=== PATIENT | female | born 1950 | race Caucasian/White ===

== ENCOUNTER 2016-05-05 10:40 | Outpatient (CLI) | payer MEDICARE, OTHER | END 2016-05-05 10:41 | disposition home or self-care (01) | DX: E78.5 Hyperlipidemia, unspecified (principal); F17.200 Nicotine dependence, unspecified, uncomplicated; M50.30 Other cervical disc degeneration, unspecified cervical region; K21.9 Gastro-esophageal reflux disease without esophagitis ==

== ENCOUNTER 2017-05-06 14:57 | Outpatient (CLI) | payer MEDICARE, OTHER ==
[2017-05-06 19:12] LABS: BASOPHILS % (AUTO) 0.4 %; EOSINOPHILS # (AUTO) 0.1 10^3/uL (0.0-0.7); EOSINOPHILS % (AUTO) 1.5 %; HGB - HEMOGLOBIN 14.8 g/dL (12.0-16.0); LYMPHOCYTES # (AUTO) 2.7 10^3/uL (1.5-3.5); LYMPHOCYTES % (AUTO) 36.7 %; MEAN CORPUSCULAR HEMOGLOBIN 29.7 pg (27.0-31.0); MEAN CORPUSCULAR HGB CONC 31.9 g/dL (32.0-36.0); MEAN CORPUSCULAR VOLUME 93.1 fL (81.0-99.0); MEAN PLATELET VOLUME 8.6 fL (7.9-10.8); MONOCYTES # (AUTO) 0.5 10^3/uL (0.0-1.0); MONOCYTES % (AUTO) 7.1 %; NEUTROPHILS # (AUTO) 3.9 10^3/uL (1.5-6.6); NEUTROPHILS % (AUTO) 54.3 %; PLT - PLATELET COUNT 264 10^3/uL (130-450); RED BLOOD COUNT 4.97 10^6/uL (4.20-5.40); RED CELL DISTRIBUTION WIDTH 13.9 % (12.0-15.0); WHITE BLOOD COUNT 7.2 x10^3/uL (4.8-10.8)
[2017-05-06 19:35] LABS: ALBUMIN 4.5 g/dL (3.2-5.5); ALBUMIN/GLOBULIN RATIO 1.3 (1.0-2.2); ALKALINE PHOSPHATASE 53 IU/L (42-121); ALT ALANINE AMINOTRANSFERASE 25 IU/L (10-60); AST ASPARTATE AMINOTRANSFERASE 33 IU/L (10-42); BILIRUBIN,TOTAL 0.9 mg/dL (0.2-1.0); BUN - BLOOD UREA NITROGEN 21 mg/dL (6-20); CALCIUM 9.4 mg/dL (8.5-10.3); CARBON DIOXIDE - CO2 28 mmol/L (21-32); CHLORIDE 105 mmol/L (101-111); CREATININE 0.6 mg/dL (0.4-1.0); GFR - MDRD 100 (>89); GLUCOSE 90 mg/dL (70-100); SODIUM 142 mmol/L (135-145)
[2017-05-06 19:36] LABS: CRP - C-REACTIVE PROTEIN < 1.0 mg/dL (0-1.0)
== END 2017-05-06 14:58 ==
LOC: LAB.WCP 14:57
PROVIDERS: ATTEND Family Medicine
DX: R51 Headache (principal)
CPT/HCPCS: 36415; 80053; 85025; 85651; 86140

== ENCOUNTER 2017-05-07 11:44 | Outpatient (CLI) | payer MEDICARE, OTHER ==
--- NOTE | 2017-05-07 15:16 | CT Report ---
DATE OF SERVICE: 05/07/[address]: 05/07/2017 COMPARISON: None. INDICATION: Headache for 4 days. TECHNIQUE: Noncontrast axial imaging of the head was performed with coronal reformats. No contrast. FINDINGS: No evidence of acute intracranial hemorrhage or mass. The ventricles appear normal without midline shift. No abnormal fluid collection is demonstrated. The mastoid air cells and the paranasal sinuses appear well aerated. No calvarial defect is seen. Soft tissues and orbits appear grossly unremarkable. IMPRESSION: NEGATIVE HEAD CT. In accordance with CT protocol optimization, one or more of the following dose reduction techniques were utilized for this exam: automated exposure control, adjustment of mA and/or KV based on patient size, or use of iterative reconstructive technique. TD: 05/07/2017 16:14 MTDD
== END 2017-05-07 11:45 | disposition home or self-care (01) ==
LOC: DI 11:44
PROVIDERS: ATTEND Family Medicine
DX: R51 Headache (principal)
CPT/HCPCS: 70450

== ENCOUNTER 2017-06-02 11:58 | Emergency (ER) | payer MEDICARE, OTHER ==
[2017-06-02 13:11] LABS: BASOPHILS # (AUTO) 0.1 10^3/uL (0.0-0.1); BASOPHILS % (AUTO) 1.5 %; EOSINOPHILS # (AUTO) 0.2 10^3/uL (0.0-0.7); EOSINOPHILS % (AUTO) 1.9 %; HGB - HEMOGLOBIN 15.4 g/dL (12.0-16.0); LYMPHOCYTES % (AUTO) 35.3 %; MEAN CORPUSCULAR HEMOGLOBIN 30.6 pg (27.0-31.0); MEAN CORPUSCULAR HGB CONC 34.9 g/dL (32.0-36.0); MEAN CORPUSCULAR VOLUME 87.8 fL (81.0-99.0); MEAN PLATELET VOLUME 7.3 fL (7.9-10.8); MONOCYTES # (AUTO) 0.6 10^3/uL (0.0-1.0); NEUTROPHILS # (AUTO) 4.7 10^3/uL (1.5-6.6); NEUTROPHILS % (AUTO) 54.3 %; PLT - PLATELET COUNT 261 10^3/uL (130-450); RED BLOOD COUNT 5.02 10^6/uL (4.20-5.40); RED CELL DISTRIBUTION WIDTH 12.7 % (12.0-15.0); WHITE BLOOD COUNT 8.6 x10^3/uL (4.8-10.8)
[2017-06-02 13:24] LABS: ALBUMIN 4.3 g/dL (3.2-5.5); ALBUMIN/GLOBULIN RATIO 1.2 (1.0-2.2); BILIRUBIN,TOTAL 0.6 mg/dL (0.2-1.0); CALCIUM 9.6 mg/dL (8.5-10.3); CREATININE 0.6 mg/dL (0.4-1.0); TOTAL PROTEIN 7.9 g/dL (6.7-8.2)
[2017-06-02 13:41] LABS: BILIRUBIN,URINE NEGATIVE (NEGATIVE); CLARITY,URINE CLEAR (CLEAR); GLUCOSE, URINE (UA) NEGATIVE (NEGATIVE); KETONES,URINE (UA) NEGATIVE (NEGATIVE); LEUKOCYTE ESTERASE, URINE NEGATIVE (NEGATIVE); NITRITE,URINE NEGATIVE (NEGATIVE); OCCULT BLOOD,URINE NEGATIVE (NEGATIVE); PROTEIN,URINE NEGATIVE (NEGATIVE); UROBILINOGEN,URINE 0.2 (NORMAL) E.U./dL (NORMAL)
--- NOTE | 2017-06-02 14:24 | ED Physician Documentation ---
PD HPI ABD PAIN - Stated complaint Stated Complaint: ABD PX - Chief complaint Chief Complaint: Abd Pain - History obtained from History obtained from: Patient - History of Present Illness Timing - onset: How many weeks ago (1) Timing - duration: Weeks (1) Timing - details: Gradual onset, Waxing and waning Quality: Cramping, Aching, Pain Location: LUQ, LLQ Radiation: Lower back Improved by: Position. No: Eating Worsened by: Position, Palpation. No: Eating Associated symptoms: Nausea. No: Fever, Vomiting, Diarrhea, Constipation Similar symptoms before: Has not had sx before Recently seen: Not recently seen Review of Systems Constitutional: denies: Fever, Chills, Myalgias Nose: denies: Rhinorrhea / runny nose, Congestion Throat: denies: Sore throat Cardiac: denies: Chest pain / pressure Respiratory: denies: Cough : denies: Dysuria, Frequency, Vaginal bleeding PD PAST MEDICAL HISTORY - Past Medical History Past Medical History: Yes Cardiovascular: High cholesterol Respiratory: COPD Neuro: Headache/migraine Endocrine/Autoimmune: None GI: GERD, Other (no history of pancreatitis) : Kidney stones HEENT: None Psych: None Musculoskeletal: Osteoarthritis Derm: None - Past Surgical History Past Surgical History: Yes 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, Hysterectomy, Oophrectomy Derm: Skin grafts - Present Medications Home Medications: Ambulatory Orders Medication Instructions Recorded Confirmed Calcium [Calcio Sheyla] 500 mg PO DAILY 10/28/12 10/02/15 Cholecalciferol (Vitamin D3) 1,000 unit PO DAILY 10/28/12 09/16/14 [Vitamin D] Esomeprazole Magnesium [Nexium] 20 mg PO BID 10/28/12 10/02/15 Simvastatin [Zocor] 20 mg PO DAILY 10/28/12 10/02/15 HYDROcod/ACETAM 5/325 [Vicodin 1 - 2 ea PO Q6H PRN #15 tablet 09/16/14 10/02/15 5/325] Docusate Sodium 100 mg PO DAILY #20 capsule 06/02/17 Famotidine [Pepcid] 20 mg PO ONCE #30 tablet 06/02/17 HYDROcod/ACETAM 5/325 [[place] 5/325] 1 tab PO Q6H PRN #15 tablet 06/02/17 Naproxen 375 mg PO BID #20 tablet 06/02/17 Ondansetron Odt [Zofran] 4 mg TL Q6H PRN #15 tablet 06/02/17 - Allergies Allergies/Adverse Reactions: Allergies Allergy/AdvReac Type Severity Reaction Status Date / Time aspirin AdvReac Mild Nausea Verified 11/23/13 11:12 - Living Situation Living Arrangement: reports: At home - Social History Does the pt smoke?: Yes Smoking Status: Current every day smoker Does the pt drink ETOH?: No Does the pt have substance abuse?: No - Family History Family history: reports: Non contributory - Immunizations Immunizations are current?: Yes PD ED PE NORMAL - Vitals Vital signs reviewed: Yes - General General: Alert and oriented X 3, No acute distress, Well developed/nourished - HEENT HEENT: Ears normal, Moist mucous membranes, Pharynx benign - Neck Neck: Supple, no meningeal sign, No adenopathy - Cardiac Cardiac: RRR, No murmur - Respiratory Respiratory: Clear bilaterally - Abdomen Abdomen: Normal bowel sounds, Soft, Non distended, No organomegaly, Other ( tender left abdomen middle to upper, and also some to epigastric area. No guarding nor percussion tenderness. ) - Female Female : Deferred - Rectal Rectal: Deferred - Back Back: No CVA TTP - Derm Derm: Normal color, Warm and dry - Extremities Extremities: No deformity, No tenderness to palpate, Normal ROM s pain, No edema , No calf tenderness / cord - Neuro Neuro: Alert and oriented X 3, No motor deficit, Normal speech - Psych Psych: Normal mood, Normal affect Results - Vitals Vitals: Oxygen O2 Source Room air - Labs Labs: Laboratory Tests 06/02/17 06/02/17 06/02/17 12:59 12:59 13:05 WBC 8.6 RBC 5.02 Hgb 15.4 Hct 44.0 MCV 87.8 MCH 30.6 MCHC 34.9 RDW 12.7 Plt Count 261 MPV 7.3 L Neut # 4.7 Lymph # 3.0 Mcmullen # 0.6 Eos # 0.2 Baso # 0.1 Absolute Nucleated RBC 0.01 Nucleated RBC % 0.1 Sodium 140 Potassium 4.2 Chloride 100 L Carbon Dioxide 29 Anion Gap 11.0 BUN 11 Creatinine 0.6 Estimated GFR (MDRD) 100 Glucose 93 Calcium 9.6 Total Bilirubin 0.6 AST 24 ALT 21 Alkaline Phosphatase 49 Total Protein 7.9 Albumin 4.3 Globulin 3.6 Albumin/Globulin Ratio 1.2 Lipase 63 H Urine Color YELLOW Urine Clarity CLEAR Urine pH 6.0 Ur Specific [place] 1.015 Urine Protein NEGATIVE Urine Glucose (UA) NEGATIVE Urine Ketones NEGATIVE Urine Occult Blood NEGATIVE Urine Nitrite NEGATIVE Urine Bilirubin NEGATIVE Urine Urobilinogen 0.2 (NORMAL) Ur Leukocyte Esterase NEGATIVE Ur Microscopic Review NOT INDICATED Urine Culture Comments NOT INDICATED - Rads (name of study) abd CT Radiology: Prelim report reviewed (some mild pancreatic inflammation c/w pancreatitis) PD MEDICAL DECISION MAKING - ED course Complexity details: reviewed results (has slight elevation of lipase and CT showing some edema around he pancreas. However her pain is more left sided like diverticular. Has had less BMs for several days to a week. Could be also some pancreatic inflammation. Not alcohol drinker. She is on two meds associated with pancreatitis, so will stop those. ), re-evaluated patient, considered differential, d/w patient Departure - Departure Disposition: 01 Home, Self Care Clinical Impression: Abdominal pain Qualifiers: Abdominal location: left upper quadrant Qualified Code(s): R10.12 - Left upper quadrant pain Pancreatitis Qualifiers: Chronicity: acute Pancreatitis type: drug induced Acute pancreatitis complication: no infection or necrosis Qualified Code(s): K85.30 - Drug induced acute pancreatitis without necrosis or infection Condition: Stable Record reviewed to determine appropriate education?: Yes Instructions: ED Abdominal Pain Unkn Cause, ED Pancreatitis Follow-Up: Tomy oRthman MD [Primary Care Provider] - Prescriptions: Docusate Sodium 100 mg PO DAILY #20 capsule Famotidine [Pepcid] 20 mg PO ONCE #30 tablet HYDROcod/ACETAM 5/325 [[place] 5/325] 1 tab PO Q6H PRN #15 tablet PRN Reason: Pain Naproxen 375 mg PO BID #20 tablet Ondansetron Odt [Zofran] 4 mg TL Q6H PRN #15 tablet PRN Reason: Nausea / Vomiting Comments: I think some of your pain is more lower intestine and may be some diverticular inflammation. There is no signs of diverticulitis on CT scan. For this I would treated with some anti-inflammatory naproxen twice daily as well as a stool softener. However you do have some upper abdominal pain and your pancreas blood test is slightly elevated and the radiologist sees some mild swelling of the pancreas on CT scan. So there appears to be some pancreatitis. 2 your medications can be associated with that; both the cholesterol medicine and the Nexium. I would stop both of those medicines for now. Switch to famotidine for stomach acid reduction. Follow-up with your primary care in the next 2-3 days for reevaluation and retest of your blood. Return sooner if worsening symptoms. Use Zofran if needed for nausea and hydrocodone for pain if needed. Discharge Date/Time: 06/02/17 20:29
[2017-06-02] MEDS ORDERED: KETOROLAC 60 MG/2 ML VIAL IVP STA (14:40)
[2017-06-02] MEDS ORDERED: HYDROmorphone 1 MG/ML SYRINGE IVP STA ×3 (14:40→19:34)
[2017-06-02] MEDS ORDERED: SODIUM CHLORIDE 0.9% 1,000 ML IV ONE (14:40)
[2017-06-02] MEDS ORDERED: ONDANSETRON 4 MG/2 ML VIAL IVP STA (14:40)
[2017-06-02] MEDS ORDERED: IOPAMIDOL-300 100 ML VIAL ONE (15:02)
[2017-06-02] MEDS ORDERED: IOPAMIDOL-300 100 ML VIAL IVP ONE (16:13)
--- NOTE | 2017-06-02 16:31 | CT Preliminary Report ---
Exam: CT ABDOMEN/PELVIS W/ IMPRESSION: 1. New small amount of pancreatic edema consistent with pancreatitis. Correlate clinically. 2. Colonic diverticulosis. 3. Moderate central spinal canal stenosis at L3-L4. [facility] SITE ID: [id number]
--- NOTE | 2017-06-02 16:43 | CT Report ---
EXAM: CT ABDOMEN AND PELVIS EXAM DATE: 06/02/2017 04:13 PM. CLINICAL HISTORY: History of diverticula. Patient presents with upper abdominal pain for one week. COMPARISONS: 08/17/2013. CT chest 02/19/2016. TECHNIQUE: Routine helical CT imaging was performed through the abdomen and pelvis. IV contrast: 100 mL Isovue-300. Enteric contrast: No. Reconstructions: Coronal and sagittal. In accordance with CT protocol optimization, one or more of the following dose reduction techniques w ere utilized for this exam: automated exposure control, adjustment of mA and/or KV based on patient s ize, or use of iterative reconstructive technique. FINDINGS: Lung Bases: Scarring or plate-like atelectasis at the right lung base. Liver: Normal. No masses. Gallbladder/Bile Ducts: Unremarkable. Spleen: Normal. Pancreas: Pancreas is of normal caliber with homogeneous enhancement. However, new small amount of pe ripancreatic edema involving the distal body and tail, greatest superiorly, without pseudocyst format ion best appreciated on coronal image 26. No focal pancreatic lesion nor pancreatic duct dilatation. Adrenal Glands: Normal. Kidneys: Normal. No masses or hydronephrosis. Peritoneal Cavity/Bowel: Diverticula off the colon. No free fluid, free air or adenopathy. No masses or acute inflammatory process. Appendix not visualized but no inflammatory changes adjacent to the cecum. Pelvic Organs: Hysterectomy. No free fluid nor adnexal mass lesions. Urinary bladder small in caliber . Vasculature: No aneurysms or other significant abnormality. Bones: Moderate central spinal canal stenosis at L3-L4. Other: None. IMPRESSION: 1. New small amount of peripancreatic edema consistent with pancreatitis. Correlate clinically. 2. Colonic diverticulosis. 3. Moderate central spinal canal stenosis at L3-L4. [facility] Referring Provider Line: [phone] SITE ID: [id number]
--- NOTE | 2017-06-02 19:33 | Ultrasound Report ---
EXAM: ABDOMEN ULTRASOUND LIMITED, RUQ EXAM DATE: 06/02/2017 07:21 PM. CLINICAL HISTORY: Upper abdominal pain; some pancreatitis on CT; check gallbladder. COMPARISON: CT abdomen and pelvis 06/02/2017. Abdomen ultrasound 10/19/2006 TECHNIQUE: Real-time scanning was performed with static images obtained. FINDINGS: Liver: Focal echogenic mass seen at the anterior aspect of the left hepatic lobe measuring 8 x 9 x 4 mm, measures slightly smaller than on the prior abdomen ultrasound, most likely represents a hemangio ma consistent with benign. Overall, the liver echotexture appears mildly hyperechoic as seen with mil d fatty liver. Liver length 15.6 cm. Main portal vein flow: Hepatopetal. Gallbladder: Normal. No stones, wall thickening, or sonographic Vital's sign. Wall measures 1.5 mm. Patient is medicated. Biliary System: Common duct measures 5.6 mm. No intrahepatic or extrahepatic ductal dilatation. Other: No hydronephrosis seen in the right kidney. IMPRESSION: 1. Normal gallbladder. No cholelithiasis or cholecystitis. 2. No bile duct dilatation seen. 3. Mild fatty liver. 4. Small liver hemangioma again noted. [facility] Referring Provider Line: [phone] SITE ID: [id number]
[2017-06-02 19:58] VITALS: BP 117/56
== END 2017-06-02 20:29 | disposition home or self-care (01) ==
LOC: ED 11:58
DX: K85.30 Drug induced acute pancreatitis without necrosis or infection (principal); E78.00 Pure hypercholesterolemia, unspecified; J44.9 Chronic obstructive pulmonary disease, unspecified; K21.9 Gastro-esophageal reflux disease without esophagitis; M19.90 Unspecified osteoarthritis, unspecified site; Z87.442 Personal history of urinary calculi; F17.200 Nicotine dependence, unspecified, uncomplicated
CPT/HCPCS: 36415; 74177; 76705; 80053; 81003; 83690; 85025; 99283; 99284; J1170; Q9967; 81001; 87086

== ENCOUNTER 2017-06-10 09:58 | Outpatient (CLI) | payer MEDICARE, OTHER ==
[2017-06-10 13:19] LABS: BASOPHILS % (AUTO) 0.4 %; EOSINOPHILS # (AUTO) 0.1 10^3/uL (0.0-0.7); HGB - HEMOGLOBIN 14.7 g/dL (12.0-16.0); LYMPHOCYTES # (AUTO) 2.5 10^3/uL (1.5-3.5); LYMPHOCYTES % (AUTO) 34.5 %; MEAN CORPUSCULAR HEMOGLOBIN 30.2 pg (27.0-31.0); MEAN CORPUSCULAR HGB CONC 33.8 g/dL (32.0-36.0); MEAN CORPUSCULAR VOLUME 89.5 fL (81.0-99.0); MEAN PLATELET VOLUME 8.3 fL (7.9-10.8); MONOCYTES # (AUTO) 0.5 10^3/uL (0.0-1.0); MONOCYTES % (AUTO) 6.8 %; NEUTROPHILS % (AUTO) 56.3 %; PLT - PLATELET COUNT 288 10^3/uL (130-450); RED BLOOD COUNT 4.86 10^6/uL (4.20-5.40); RED CELL DISTRIBUTION WIDTH 13.2 % (12.0-15.0); WHITE BLOOD COUNT 7.2 x10^3/uL (4.8-10.8)
[2017-06-10 13:34] LABS: ALBUMIN 4.1 g/dL (3.2-5.5); ALBUMIN/GLOBULIN RATIO 1.2 (1.0-2.2); BILIRUBIN,TOTAL 0.6 mg/dL (0.2-1.0); CALCIUM 10.2 mg/dL (8.5-10.3); CREATININE 0.6 mg/dL (0.4-1.0); TOTAL PROTEIN 7.5 g/dL (6.7-8.2)
== END 2017-06-10 09:59 ==
LOC: LAB.WCP 09:58
PROVIDERS: ATTEND Family Medicine
DX: K85.90 Acute pancreatitis without necrosis or infection, unspecified (principal)
CPT/HCPCS: 36415; 80053; 82150; 83690; 85025

== ENCOUNTER 2017-06-12 12:22 | Outpatient (CLI) | payer MEDICARE, OTHER | END 2017-06-12 12:23 | disposition home or self-care (01) | LOC: DI 12:22 | PROVIDERS: ATTEND Family Medicine | DX: Z53.9 Procedure and treatment not carried out, unspecified reason (principal) ==

== ENCOUNTER 2017-06-15 10:53 | Outpatient (CLI) | payer MEDICARE, OTHER ==
[2017-06-15] MEDS ORDERED: IOPAMIDOL-300 50 ML VIAL ONE (11:13)
[2017-06-15] MEDS ORDERED: IOPAMIDOL-300 100 ML VIAL ONE (11:13)
[2017-06-15] MEDS ORDERED: IOPAMIDOL-300 100 ML VIAL IVP ONE (13:28)
[2017-06-15] MEDS ORDERED: IOPAMIDOL-300 50 ML VIAL PO ONE (13:28)
--- NOTE | 2017-06-15 18:15 | CT Report ---
CT ABDOMEN AND PELVIS WITH CONTRAST: 06/15/2017 CLINICAL INDICATION: Pancreatitis. COMPARISON: 06/02/2017 TECHNIQUE: Axial CT images of the abdomen and pelvis were obtained with 100 mL Isovue 300 intravenously as well as oral contrast. In accordance with CT protocol optimization, one or more of the following dose reduction techniques were utilized for this exam: Automated exposure control, adjustment of mA and/or KV based on patient size, or use of iterative reconstructive technique. FINDINGS: Limited evaluation of the lung bases is unremarkable. ABDOMEN: The liver, spleen, pancreas, kidneys and adrenal glands are unremarkable. The gallbladder is not dilated. No bowel dilatation, free gas, or free fluid is present. No abdominal adenopathy is seen. PELVIS: A few scattered sigmoid diverticula are seen, without CT evidence of diverticulitis. The patient is status post hysterectomy. No pelvic adenopathy or free fluid is present. Osseous structures demonstrate degenerative changes. IMPRESSION: NO EVIDENT PANCREATIC MASS OR RESIDUAL INFLAMMATION FROM PREVIOUS PANCREATITIS. TD: 06/15/2017 18:14
== END 2017-06-15 10:54 | disposition home or self-care (01) ==
LOC: DI 10:53
PROVIDERS: ATTEND Family Medicine
DX: K85.90 Acute pancreatitis without necrosis or infection, unspecified (principal)
CPT/HCPCS: 74177; Q9967

== ENCOUNTER 2017-12-09 15:12 | Outpatient (CLI) | payer MEDICARE, OTHER ==
[2017-12-09 18:42] LABS: BASOPHILS % (AUTO) 0.5 %; EOSINOPHILS # (AUTO) 0.1 10^3/uL (0.0-0.7); EOSINOPHILS % (AUTO) 1.4 %; HGB - HEMOGLOBIN 15.2 g/dL (12.0-16.0); LYMPHOCYTES # (AUTO) 3.4 10^3/uL (1.5-3.5); LYMPHOCYTES % (AUTO) 40.2 %; MEAN CORPUSCULAR HEMOGLOBIN 30.6 pg (27.0-31.0); MEAN CORPUSCULAR HGB CONC 33.2 g/dL (32.0-36.0); MEAN CORPUSCULAR VOLUME 92.4 fL (81.0-99.0); MEAN PLATELET VOLUME 8.3 fL (7.9-10.8); MONOCYTES # (AUTO) 0.6 10^3/uL (0.0-1.0); MONOCYTES % (AUTO) 6.7 %; NEUTROPHILS # (AUTO) 4.3 10^3/uL (1.5-6.6); NEUTROPHILS % (AUTO) 51.2 %; PLT - PLATELET COUNT 273 10^3/uL (130-450); RED BLOOD COUNT 4.95 10^6/uL (4.20-5.40); RED CELL DISTRIBUTION WIDTH 13.6 % (12.0-15.0); WHITE BLOOD COUNT 8.5 x10^3/uL (4.8-10.8)
[2017-12-09 19:12] LABS: ALBUMIN/GLOBULIN RATIO 1.1 (1.0-2.2); ALKALINE PHOSPHATASE 51 IU/L (42-121); ALT ALANINE AMINOTRANSFERASE 23 IU/L (10-60); AMYLASE 39 U/L (28-100); AST ASPARTATE AMINOTRANSFERASE 28 IU/L (10-42); BILIRUBIN,TOTAL 1.5 mg/dL (0.2-1.0); CALCIUM 9.6 mg/dL (8.5-10.3); CARBON DIOXIDE - CO2 26 mmol/L (21-32); CHLORIDE 102 mmol/L (101-111); CHOL/HDL RATIO 7.2 (<4.4); CHOLESTEROL 301 mg/dL; GLUCOSE 90 mg/dL (70-100); HDL CHOLESTEROL 42 mg/dL; LDL CHOLESTEROL,CALCULATED 219 mg/dL; LDL/HDL RATIO 5.2 (<4.4); LIPASE 30 U/L (22-51); SODIUM 137 mmol/L (135-145); TOTAL PROTEIN 7.6 g/dL (6.7-8.2); VLDL CHOLESTEROL 40 mg/dL
[2017-12-09 19:19] LABS: BUN - BLOOD UREA NITROGEN 14 mg/dL (6-20); CREATININE 0.6 mg/dL (0.4-1.0); GFR - MDRD 100 (>89)
== END 2017-12-09 15:13 ==
LOC: LAB.WCP 15:12
PROVIDERS: ATTEND Family Medicine
DX: K85.90 Acute pancreatitis without necrosis or infection, unspecified (principal); Z13.29 Encounter for screening for other suspected endocrine disorder; R10.13 Epigastric pain
CPT/HCPCS: 36415; 80053; 80061; 82150; 83690; 83721; 84443; 85025

== ENCOUNTER 2017-12-10 12:10 | Outpatient (CLI) | payer MEDICARE, OTHER | END 2017-12-10 12:11 | disposition home or self-care (01) | LOC: LAB.WCP 12:10 | PROVIDERS: ATTEND Family Medicine | DX: K85.90 Acute pancreatitis without necrosis or infection, unspecified (principal); R10.13 Epigastric pain | CPT/HCPCS: 87338 ==

== ENCOUNTER 2017-12-13 08:00 | Outpatient (CLI) | payer MEDICARE, OTHER ==
[2017-12-13 20:00] LABS: H. PYLORIS ANTIGEN STL NEGATIVE (Negative)
== END 2017-12-13 08:01 | disposition home or self-care (01) ==
LOC: LAB.WCP 08:00
PROVIDERS: ATTEND Family Medicine
DX: K85.90 Acute pancreatitis without necrosis or infection, unspecified (principal); R10.13 Epigastric pain
CPT/HCPCS: 87338

== ENCOUNTER 2018-02-25 14:39 | Outpatient (CLI) | payer MEDICARE, OTHER ==
[2018-02-25 18:55] LABS: CREATININE 0.6 mg/dL (0.4-1.0)
== END 2018-02-25 14:40 | disposition home or self-care (01) ==
LOC: LAB.WCP 14:39
PROVIDERS: ATTEND Internal Medicine Gastroenterology
DX: K85.90 Acute pancreatitis without necrosis or infection, unspecified (principal)
CPT/HCPCS: 36415; 82565

== ENCOUNTER 2018-08-19 08:00 | Outpatient (CLI) | payer MEDICARE, OTHER ==
[2018-08-19 13:47] LABS: BASOPHILS # (AUTO) 0.1 10^3/uL (0.0-0.1); BASOPHILS % (AUTO) 0.6 %; EOSINOPHILS # (AUTO) 0.1 10^3/uL (0.0-0.7); EOSINOPHILS % (AUTO) 0.7 %; HGB - HEMOGLOBIN 13.7 g/dL (12.0-16.0); LYMPHOCYTES # (AUTO) 5.2 10^3/uL (1.5-3.5); MEAN CORPUSCULAR HEMOGLOBIN 29.8 pg (27.0-31.0); MEAN CORPUSCULAR HGB CONC 32.4 g/dL (32.0-36.0); MEAN CORPUSCULAR VOLUME 91.9 fL (81.0-99.0); MEAN PLATELET VOLUME 7.8 fL (7.9-10.8); MONOCYTES # (AUTO) 1.1 10^3/uL (0.0-1.0); MONOCYTES % (AUTO) 8.6 %; NEUTROPHILS # (AUTO) 6.5 10^3/uL (1.5-6.6); NEUTROPHILS % (AUTO) 50.1 %; PLT - PLATELET COUNT 344 10^3/uL (130-450); RED BLOOD COUNT 4.59 10^6/uL (4.20-5.40); RED CELL DISTRIBUTION WIDTH 13.8 % (12.0-15.0)
[2018-08-19 13:52] LABS: ALBUMIN 3.9 g/dL (3.2-5.5); ALBUMIN/GLOBULIN RATIO 1.1 (1.0-2.2); BILIRUBIN,TOTAL 0.6 mg/dL (0.2-1.0); CALCIUM 9.8 mg/dL (8.5-10.3); CREATININE 0.6 mg/dL (0.4-1.0); TOTAL PROTEIN 7.3 g/dL (6.7-8.2)
== END 2018-08-19 23:59 | disposition home or self-care (01) ==
LOC: LAB.WCP 08:00
PROVIDERS: ATTEND Family Medicine
DX: J44.9 Chronic obstructive pulmonary disease, unspecified (principal); R06.09 Other forms of dyspnea; R05 Cough
CPT/HCPCS: 36415; 80053; 83880; 85025

== ENCOUNTER 2018-08-19 10:03 | Outpatient (CLI) | payer MEDICARE, OTHER ==
--- NOTE | 2018-08-19 11:20 | XRAY Report ---
Reason: COUGH Procedure Date: 08/19/2018 Accession Number: [id number] / [id number] Procedure: WCP - Chest 2 View X-Ray CPT Code: 39104 FULL RESULT: EXAM: CHEST RADIOGRAPHY EXAM DATE: 08/19/2018 10:14 AM. CLINICAL HISTORY: COUGH. COMPARISON: 03/21/2015 9:18 AM. TECHNIQUE: 2 views. FINDINGS: Lungs/Pleura: No focal opacities evident. No pleural effusion. No pneumothorax. Normal volumes. Mediastinum: Heart and mediastinal contours are unremarkable. Other: None. IMPRESSION: Normal 2-view chest radiography. [facility]
== END 2018-08-19 10:04 | disposition home or self-care (01) ==
LOC: DI.WCP 10:03
PROVIDERS: ATTEND Family Medicine
DX: R05 Cough (principal); J44.9 Chronic obstructive pulmonary disease, unspecified; R06.09 Other forms of dyspnea
CPT/HCPCS: 36415; 71046; 80053; 83880; 85025

== ENCOUNTER 2019-05-16 14:49 | Outpatient (CLI) | payer MEDICARE, OTHER ==
--- NOTE | 2019-05-16 16:32 | XRAY Report ---
Reason: KNEE JOINT PAIN, RIGHT Procedure Date: 05/16/2019 Accession Number: [id number] / [id number] Procedure: XR - Knee 3 View RT CPT Code: Final Report FULL RESULT: EXAM: RIGHT KNEE RADIOGRAPHY EXAM DATE: 05/16/2019 03:37 PM. CLINICAL HISTORY: Chronic KNEE JOINT PAIN, RIGHT. COMPARISON: None. TECHNIQUE: 3 views. FINDINGS: Bones: Normal. No fractures or bone lesions. Joints: Small knee joint effusion. No joint space narrowing on weightbearing views. No subluxation. No osteophyte formation. Soft Tissues: Normal. No soft tissue swelling. IMPRESSION: 1. Small right knee joint effusion. 2. No joint space narrowing. No evidence of bony abnormality. [facility]
== END 2019-05-16 14:50 | disposition home or self-care (01) ==
LOC: DI 14:49
PROVIDERS: ATTEND Family Medicine
DX: M25.461 Effusion, right knee (principal)

== ENCOUNTER 2020-10-07 08:00 | Outpatient (CLI) | payer MEDICARE, OTHER ==
[2020-10-07 12:26] LABS: BASOPHILS # (AUTO) 0.1 10^3/uL (0.0-0.1); BASOPHILS % (AUTO) 0.7 %; EOSINOPHILS # (AUTO) 0.2 10^3/uL (0.0-0.7); HCT - HEMATOCRIT 48.6 % (37.0-47.0); HGB - HEMOGLOBIN 15.5 g/dL (12.0-16.0); LYMPHOCYTES # (AUTO) 3.4 10^3/uL (1.5-3.5); LYMPHOCYTES % (AUTO) 39.4 %; MEAN CORPUSCULAR HEMOGLOBIN 30.2 pg (27.0-31.0); MEAN CORPUSCULAR HGB CONC 31.9 g/dL (32.0-36.0); MEAN CORPUSCULAR VOLUME 94.6 fL (81.0-99.0); MONOCYTES # (AUTO) 0.6 10^3/uL (0.0-1.0); MONOCYTES % (AUTO) 7.3 %; NEUTROPHILS # (AUTO) 4.4 10^3/uL (1.5-6.6); NEUTROPHILS % (AUTO) 50.4 %; PLT - PLATELET COUNT 296 10^3/uL (130-450); RED BLOOD COUNT 5.14 10^6/uL (4.20-5.40); RED CELL DISTRIBUTION WIDTH 13.6 % (12.0-15.0); WHITE BLOOD COUNT 8.7 x10^3/uL (4.8-10.8)
[2020-10-07 13:11] LABS: ALBUMIN 4.5 g/dL (3.2-5.5); ALBUMIN/GLOBULIN RATIO 1.2 (1.0-2.2); ALKALINE PHOSPHATASE 59 IU/L (42-121); ALT ALANINE AMINOTRANSFERASE 20 IU/L (10-60); AST ASPARTATE AMINOTRANSFERASE 25 IU/L (10-42); BILIRUBIN,TOTAL 1.1 mg/dL (0.2-1.0); BUN - BLOOD UREA NITROGEN 11 mg/dL (6-20); CALCIUM 9.8 mg/dL (8.5-10.3); CARBON DIOXIDE - CO2 32 mmol/L (21-32); CHLORIDE 101 mmol/L (101-111); CHOL/HDL RATIO 6.5 (<4.4); CHOLESTEROL 325 mg/dL; CREATININE 0.6 mg/dL (0.4-1.0); GFR - MDRD 99 (>89); GLUCOSE 96 mg/dL (70-100); HDL CHOLESTEROL 50 mg/dL; LDL CHOLESTEROL,CALCULATED 224 mg/dL; LDL/HDL RATIO 4.5 (<4.4); SODIUM 143 mmol/L (135-145); TOTAL PROTEIN 8.2 g/dL (6.7-8.2); TRIGLYCERIDES 257 mg/dL; VLDL CHOLESTEROL 51 mg/dL
[2020-10-07 13:24] LABS: THYROID STIMULATING HORMONE 1.06 uIU/mL (0.34-5.60)
== END 2020-10-07 23:59 | disposition home or self-care (01) ==
LOC: LAB.WCP 08:00
PROVIDERS: ATTEND Internal Medicine
DX: K85.90 Acute pancreatitis without necrosis or infection, unspecified (principal); E78.5 Hyperlipidemia, unspecified; E55.9 Vitamin D deficiency, unspecified; R51.9 Headache, unspecified; G47.00 Insomnia, unspecified
CPT/HCPCS: 36415; 80053; 80061; 82306; 83721; 84443; 85025

== ENCOUNTER 2021-01-10 08:56 | Outpatient (CLI) | payer MEDICARE, OTHER ==
[2021-01-10 14:15] LABS: ALT ALANINE AMINOTRANSFERASE 19 IU/L (10-60); CHOL/HDL RATIO 3.2 (<4.4); CHOLESTEROL 149 mg/dL; HDL CHOLESTEROL 46 mg/dL; LDL CHOLESTEROL,CALCULATED 70 mg/dL; LDL/HDL RATIO 1.5 (<4.4); TRIGLYCERIDES 166 mg/dL; VLDL CHOLESTEROL 33 mg/dL
== END 2021-01-10 23:59 | disposition home or self-care (01) ==
LOC: LAB.WCP 08:56
PROVIDERS: ATTEND Internal Medicine
DX: E78.5 Hyperlipidemia, unspecified (principal)
CPT/HCPCS: 36415; 80061; 83721; 84460

== ENCOUNTER 2021-01-17 08:40 | Outpatient (CLI) | payer MEDICARE, OTHER ==
[2021-01-17 13:36] LABS: BASOPHILS # (AUTO) 0.1 10^3/uL (0.0-0.1); BASOPHILS % (AUTO) 0.7 %; EOSINOPHILS # (AUTO) 0.2 10^3/uL (0.0-0.7); EOSINOPHILS % (AUTO) 2.5 %; HCT - HEMATOCRIT 46.1 % (37.0-47.0); HGB - HEMOGLOBIN 14.5 g/dL (12.0-16.0); LYMPHOCYTES # (AUTO) 2.9 10^3/uL (1.5-3.5); LYMPHOCYTES % (AUTO) 40.2 %; MEAN CORPUSCULAR HGB CONC 31.5 g/dL (32.0-36.0); MEAN CORPUSCULAR VOLUME 95.4 fL (81.0-99.0); MONOCYTES # (AUTO) 0.5 10^3/uL (0.0-1.0); MONOCYTES % (AUTO) 6.9 %; NEUTROPHILS # (AUTO) 3.6 10^3/uL (1.5-6.6); NEUTROPHILS % (AUTO) 49.6 %; PLT - PLATELET COUNT 261 10^3/uL (130-450); RED BLOOD COUNT 4.83 10^6/uL (4.20-5.40); WHITE BLOOD COUNT 7.3 x10^3/uL (4.8-10.8)
[2021-01-17 14:34] LABS: % IRON SATURATION 20 % (20-50); IRON 73 ug/dL (28-170); TOTAL IRON BINDING CAPACITY 370 ug/dL (250-450); TRANSFERRIN 264 mg/dL (192-382)
== END 2021-01-17 23:59 | disposition home or self-care (01) ==
LOC: LAB.WCP 08:40
PROVIDERS: ATTEND Internal Medicine
DX: G25.81 Restless legs syndrome (principal)
CPT/HCPCS: 36415; 82728; 83540; 84466; 85025

== ENCOUNTER 2021-04-14 12:00 | Outpatient (CLI) | payer MEDICARE, OTHER ==
--- NOTE | 2021-04-15 14:03 | Mammography Report ---
BILATERAL DIGITAL SCREENING MAMMOGRAM 3D/2D: 04/14/2021 CLINICAL: Routine screening. Comparison is made to exams dated: 11/08/2014 mammogram and 06/12/2011 mammogram - [facility]. The tissue of both breasts is predominantly fatty. No significant masses, calcifications, or other findings are seen in either breast. There has been no significant interval change. IMPRESSION: NEGATIVE There is no mammographic evidence of malignancy. A 1 year screening mammogram is recommended. This exam was interpreted at Station ID: [id number]. NOTE: For mammograms, a report in lay terms will be sent to the patient. Approximately 15% of breast malignancies will not be visualized mammographically. In the management of a palpable breast mass, a negative mammogram must not discourage biopsy of a clinically suspicious lesion. Electronically Signed By: Agus Sheikh acr/penrad:04/14/2021 12:48:03 ACR BI-RADS Category 1: Negative 3341F PARENCHYMAL PATTERN: (F) - The breast(s) demonstrate(s) diffuse fatty replacement. BI-RADS CATEGORY: (1) - 1 RECOMMENDATION: (ANNUAL) - Recommend routine annual screening mammography. [id number] 1 year screening LATERALITY: (B)
== END 2021-04-14 12:01 | disposition home or self-care (01) ==
LOC: DI.N 12:00
PROVIDERS: ATTEND Internal Medicine
DX: Z12.31 Encounter for screening mammogram for malignant neoplasm of breast (principal)

== ENCOUNTER 2021-05-16 10:25 | Outpatient (CLI) | payer MEDICARE, OTHER ==
--- NOTE | 2021-05-16 13:37 | XRAY Report ---
PROCEDURE: Lumbar Spine Complete INDICATIONS: CHRONIC LOW BACK PAIN, KNOW DJD, ASSESS FOR COMPRESSION FX TECHNIQUE: 5 views of the lumbar spine were acquired. COMPARISON: None. FINDINGS: Bones: 5 [id number] vertebrae are present. Mild degenerative changes noted throughout the lumba r spine. Moderate bilateral L1-L2 and L2-L3 facet hypertrophy. Severe bilateral L3-L4, L4-L5 and L5-S 1 facet hypertrophy. There is normal bony alignment. No vertebral body compression fractures. No villaseñor spicious bony lesions. Oblique views demonstrate no pars and articularis defects. Soft tissues: Overlying bowel gas pattern is normal. No suspicious soft tissue calcifications. IMPRESSION: 1. Multilevel degenerative disc disease. 2. Multilevel facet arthropathy. 3. No fracture. No acute osseous lesion. If there is continued clinical concern for pathology, then M RI should be considered for further evaluation. Reviewed by: Sandie Bartholomew MD, PhD on 05/16/2021 1:36 PM PST Approved by: Sandie Bartholomew MD, PhD on 05/16/2021 1:36 PM PST Station ID: [id number]
== END 2021-05-16 10:26 | disposition home or self-care (01) ==
LOC: DI.N 10:25
PROVIDERS: ATTEND Internal Medicine
DX: M51.36 Other intervertebral disc degeneration, lumbar region (principal); M47.816 Spondylosis without myelopathy or radiculopathy, lumbar region; M47.817 Spondylosis without myelopathy or radiculopathy, lumbosacral region

== ENCOUNTER 2022-01-06 08:00 | Outpatient (CLI) | payer MEDICARE, OTHER | END 2022-01-06 23:59 | disposition home or self-care (01) | LOC: LAB 08:00 | PROVIDERS: ATTEND Registered Nurse | DX: L03.90 Cellulitis, unspecified (principal); T81.31XA Disruption of external operation (surgical) wound, not elsewhere classified, initial encounter | CPT/HCPCS: 87070; 87205 ==

== ENCOUNTER 2022-02-26 07:37 | Outpatient (CLI) | payer MEDICARE, OTHER ==
[2022-02-26 08:04] LABS: CREATININE 0.6 mg/dL (0.4-1.0)
[2022-02-26] MEDS ORDERED: iohexoL-300 100 ML VIAL ONE (08:04)
[2022-02-26] MEDS ORDERED: iohexoL-300 100 ML VIAL IVP ONE (08:48)
--- NOTE | 2022-02-26 11:23 | CT Report ---
PROCEDURE: SOFT TISSUE NECK W INDICATIONS: THROAT throat swelling SWELLING CONTRAST: TECHNIQUE: After the administration of intravenous contrast, 3.0 mm axial sections acquired from the sella to th e aortic arch. Additional oblique axial 3.0 mm sections acquired through the pharynx. 3 mm thick co candice reformats were generated. For radiation dose reduction, the following was used: automated exp osure control, adjustment of mA and/or kV according to patient size. COMPARISON: None. FINDINGS: Image quality: Excellent. Lymph nodes: No enlarged lymph nodes seen throughout the neck. Vessels: Visualized vasculature appears patent. Right ICA medialization adjacent to the prominent c ervical osteophytes at the C3-C4 level. Neck spaces: The oropharynx, nasopharynx, and pharynx demonstrate no mucosal lesions. The vocal cor ds, false vocal cords, pyriform sinuses, epiglottis, vallecula, and tongue base all appear normal. Glands: Projecting anteriorly from the thyroid isthmus centered just left of midline there is a 1.7 c m exophytic nodule which has mildly heterogenous internal enhancement relative to the fairly homogene ous background thyroid enhancement. There is an additional nodule at the lateral aspect of the right thyroid lobe measuring up to 1.6 cm. Submandibular and parotid glands are normal. Miscellaneous: Visualized brain and orbits appear normal. Lung apices appear clear. Superficial so ft tissues appear normal. Bones: Prominent cervical osteophytes at C3-C4 level producing mass effect on the posterior esophagus . IMPRESSION: Prominent anterior C3-C4 endplate osteophytes which produce a posterior impression upon the esophagus and could potentially produce dysphagia or globus sensation. Of note, there is medialization of the right extracranial internal carotid artery into the retropharyngeal/prevertebral space immediately ad jacent to the prominent cervical osteophytes. This would be of interest in the event of operation to address the anterior cervical osteophytes. Two exophytic thyroid gland nodules. These are a less likely but still potential source of dysphagia or globus sensation. Thyroid ultrasound is recommended for further characterization in order to exclu de any malignant potential. Consider an esophagram for further evaluation. Reviewed by: Richard Arreola MD on 02/26/2022 11:21 AM PDT Approved by: Richard Arreola MD on 02/26/2022 11:21 AM PDT Station ID: [id number]
== END 2022-02-26 07:38 | disposition home or self-care (01) ==
LOC: LAB 07:37
PROVIDERS: ATTEND Registered Nurse
DX: R22.1 Localized swelling, mass and lump, neck (principal); F17.200 Nicotine dependence, unspecified, uncomplicated; E04.2 Nontoxic multinodular goiter; M25.78 Osteophyte, vertebrae
CPT/HCPCS: 36415; 70491; 82565; Q9967

== ENCOUNTER 2022-03-05 15:16 | Outpatient (CLI) | payer MEDICARE, OTHER ==
--- NOTE | 2022-03-05 18:44 | Ultrasound Report ---
PROCEDURE: Head or Neck Soft Tissue INDICATIONS: THYROID NODULE TECHNIQUE: Real-time scanning was performed of the thyroid gland, with image documentation. COMPARISON: CT soft tissue neck dated 02/26/2022 FINDINGS: Right: Thyroid lobe measures 5.3 x 2.0 x 1.6 cm Left: Thyroid lobe measures 4.1 x 1.6 x 1.5 cm Isthmus: 3 mm thick. Nodule number: 1 Location: Location Size: 2.1 x 1.5 x 1.5 cm. Composition: Solid Echogenicity: Hypoechoic Shape: wider than tall. Margins: Smooth Echogenic foci: None Total points: 5 ACR TI-RADS category: Moderately suspicious Nodule number: 2 Location: Isthmus Size: 2.0 x 1.4 x 1.5 cm. Composition: Solid Echogenicity: Hypoechoic Shape: wider than tall. Margins: Smooth Echogenic foci: None Total points: 5 ACR TI-RADS category: Moderately suspicious IMPRESSION: There are 2 thyroid nodules, maximum diameter 2.1 cm in 2.0 cm respectively, which are b oth moderately suspicious for malignancy (reference chart below). Ultrasound-guided FNA for tissue di agnosis is recommended. ACR TI-RADS definitions and recommendations: TI-RADS 1 (benign): 0 points. FNA not needed. TI-RADS 2 (not suspicious): 2 points. FNA not needed. TI-RADS 3 (mildly suspicious): 3 points. "FNA if 2.5 cm or larger, follow up if 1.5 cm or larger (at 1, 3, and 5 years). TI-RADS 4 (moderately suspicious): 4-6 points. "FNA if 1.5 cm or larger, follow up if 1 cm or larger (at 1, 2, 3, and 5 years). TI-RADS 5 (highly suspicious): 7 points or more. "FNA if 1 cm or larger, follow up if 0.5 cm or larger (every year for 5 years). Reviewed by: Bartolome Armendariz MD on 03/05/2022 6:43 PM PDT Approved by: Bartolome Armendariz MD on 03/05/2022 6:43 PM PDT Station ID: [id number]
== END 2022-03-05 15:17 | disposition home or self-care (01) ==
LOC: DI 15:16
PROVIDERS: ATTEND Registered Nurse
DX: E04.2 Nontoxic multinodular goiter (principal)

== ENCOUNTER 2022-03-20 10:03 | Outpatient (CLI) | payer MEDICARE, OTHER ==
[2022-03-20 12:12] LABS: BASOPHILS # (AUTO) 0.1 10^3/uL (0.0-0.1); BASOPHILS % (AUTO) 0.7 %; EOSINOPHILS # (AUTO) 0.2 10^3/uL (0.0-0.7); EOSINOPHILS % (AUTO) 2.4 %; HGB - HEMOGLOBIN 14.7 g/dL (12.0-16.0); LYMPHOCYTES % (AUTO) 36.3 %; MEAN CORPUSCULAR HEMOGLOBIN 28.9 pg (27.0-31.0); MEAN CORPUSCULAR HGB CONC 31.3 g/dL (32.0-36.0); MEAN CORPUSCULAR VOLUME 92.3 fL (81.0-99.0); MEAN PLATELET VOLUME 9.5 fL (7.9-10.8); MONOCYTES # (AUTO) 0.6 10^3/uL (0.0-1.0); MONOCYTES % (AUTO) 7.6 %; NEUTROPHILS # (AUTO) 4.4 10^3/uL (1.5-6.6); NEUTROPHILS % (AUTO) 52.8 %; PLT - PLATELET COUNT 268 10^3/uL (130-450); RED BLOOD COUNT 5.09 10^6/uL (4.20-5.40); WHITE BLOOD COUNT 8.3 x10^3/uL (4.8-10.8)
[2022-03-20 12:40] LABS: ESTIMATED AVERAGE GLUCOSE 120 mg/dL (70-100); HEMOGLOBIN A1c% 5.8 % (4.27-6.07)
[2022-03-20 12:46] LABS: ALBUMIN 4.3 g/dL (3.2-5.5); ALBUMIN/GLOBULIN RATIO 1.1 (1.0-2.2); BILIRUBIN,TOTAL 0.9 mg/dL (0.2-1.0); CALCIUM 9.8 mg/dL (8.5-10.3); CREATININE 0.6 mg/dL (0.4-1.0); TOTAL PROTEIN 8.1 g/dL (6.7-8.2)
[2022-03-20 12:52] LABS: THYROID STIMULATING HORMONE 0.57 uIU/mL (0.34-5.60)
== END 2022-03-20 10:04 | disposition home or self-care (01) ==
LOC: LAB.N 10:03
PROVIDERS: ATTEND Family Medicine
DX: E04.1 Nontoxic single thyroid nodule (principal); R35.0 Frequency of micturition
CPT/HCPCS: 36415; 80053; 83036; 84443; 85025

== ENCOUNTER 2022-03-24 09:45 | Outpatient (CLI) | payer MEDICARE, OTHER ==
[~2022-03-24 09:45] MED LIST: lidocaine 1% 20 ML MDV ONE
[2022-03-24] MEDS ORDERED: lidocaine 1% 20 ML MDV SUBQ ONE (11:32)
--- NOTE | 2022-03-24 13:17 | Ultrasound Report ---
PROCEDURE: FNA Bx w/US Gdn 1st Les INDICATIONS: THYROID NODULE TECHNIQUE: The indications, alternatives, benefits, risks, and complications of the procedure were explained to the patient. Written informed consent was obtained and placed in the chart. The area of interest wa s examined sonographically and a site was chosen for ultrasound guided percutaneous sampling. The sk in was prepared and draped in the usual fashion, and anesthetized with 1% lidocaine infiltrated from the skin down to the lesion. Multiple passes were then performed, with contents emptied into an [facility] pathology specimen container. A bandage was applied to the area of access at completion of t he study. COMPARISON: Thyroid ultrasound dated 03/05/2022 FINDINGS: Location(s) of lesion(s) sampled: 1.9 cm right lower pole and 1.6 cm isthmus. [place]: 25 gauge hypodermic needles. Number of passes: 6 passes in each nodule. Medications: 1% lidocaine for local anaesthesia. Complications: None. IMPRESSION: Successful ultrasound-guided a right lower pole and isthmus fine needle aspiration, with cytology res ults pending. Reviewed by: Agus Sheikh on 03/24/2022 1:16 PM PST Approved by: Agus Sheikh on 03/24/2022 1:16 PM PST Station ID: [id number]
--- NOTE | 2022-03-24 13:17 | Ultrasound Report ---
PROCEDURE: FNA Bx w/US Gnd Ea Addl INDICATIONS: THYROID NODULES TECHNIQUE: The indications, alternatives, benefits, risks, and complications of the procedure were explained to the patient. Written informed consent was obtained and placed in the chart. The area of interest wa s examined sonographically and a site was chosen for ultrasound guided percutaneous sampling. The sk in was prepared and draped in the usual fashion, and anesthetized with 1% lidocaine infiltrated from the skin down to the lesion. Multiple passes were then performed, with contents emptied [facility]. A bandage was applied to the area of access at completion of t he study. COMPARISON: Thyroid ultrasound dated 03/05/2022 FINDINGS: Location(s) of lesion(s) sampled: 1.9 cm right lower pole and 1.6 cm isthmus. [place]: 25 gauge hypodermic needles. Number of passes: 6 passes in each nodule. Medications: 1% lidocaine for local anaesthesia. Complications: None. IMPRESSION: Successful ultrasound-guided a right lower pole and isthmus fine needle aspiration, with cytology res ults pending. Reviewed by: Agus Sheikh on 03/24/2022 1:16 PM PST Approved by: Agus Sheikh on 03/24/2022 1:16 PM PST Station ID: [id number]
== END 2022-03-24 09:46 | disposition home or self-care (01) ==
LOC: DI 09:45
PROVIDERS: ATTEND Registered Nurse
DX: E04.2 Nontoxic multinodular goiter (principal)
CPT/HCPCS: 10005; 10006

== ENCOUNTER 2022-06-03 13:22 | Outpatient (CLI) | payer MEDICARE, OTHER ==
--- NOTE | 2022-06-04 12:42 | Mammography Report ---
BILATERAL DIGITAL SCREENING MAMMOGRAM 3D/2D: 06/03/2022 CLINICAL: Routine screening. Comparison is made to exams dated: 04/14/2021 mammogram, 11/08/2014 mammogram, and 06/12/2011 mammogram - [facility]. Both breasts are almost entirely fatty (category a/<25% glandular tissue). No significant masses, calcifications, or other findings are seen in either breast. There has been no significant interval change. IMPRESSION: NEGATIVE There is no mammographic evidence of malignancy. A 1 year screening mammogram is recommended. Based on the Tyrer Cuzick model (a risk assessment model) the patients lifetime risk is 2.0% and her 10 year risk is 1.4%. According to the ACR, ACS, and NCCN guidelines, an annual breast MRI exam yuliya g with mammogram is recommended if the patients lifetime risk is 20% or greater. This exam was interpreted at Station ID: [id number]. NOTE: For mammograms, a report in lay terms will be sent to the patient. Approximately 15% of breast malignancies will not be visualized mammographically. In the management of a palpable breast mass, a negative mammogram must not discourage biopsy of a clinically suspicious lesion. Electronically Signed By: Kyle Amezquita M.D. aty/nainrad:06/03/2022 17:48:32 ACR BI-RADS Category 1: Negative 3341F PARENCHYMAL PATTERN: (F) - The breast(s) demonstrate(s) diffuse fatty replacement. BI-RADS CATEGORY: (1) - 1 RECOMMENDATION: (ANNUAL) - Recommend routine annual screening mammography. [id number] 1 year screening LATERALITY: (B)
== END 2022-06-03 13:23 | disposition home or self-care (01) ==
LOC: DI.N 13:22
DX: Z12.31 Encounter for screening mammogram for malignant neoplasm of breast (principal)

== ENCOUNTER 2022-07-23 09:31 | Outpatient (CLI) | payer MEDICARE, OTHER ==
[2022-07-23] MEDS ORDERED: LIDOCAINE-MPF 1% 5 ML VIAL ONE (09:49)
[2022-07-23] MEDS ORDERED: LIDOCAINE-MPF 1% 5 ML VIAL TD ONE (11:37)
--- NOTE | 2022-07-23 17:50 | Ultrasound Report ---
PROCEDURE: FNA Bx w/US Gdn 1st Les INDICATIONS: MULTIPLE THYROID NODULES TECHNIQUE: The indications, alternatives, benefits, risks, and complications of the procedure were explained to the patient. Written informed consent was obtained and placed in the chart. The area of interest wa s examined sonographically and a site was chosen for ultrasound guided percutaneous sampling. The sk in was prepared and draped in the usual fashion, and anesthetized with 1% lidocaine infiltrated from the skin down to the lesion. Multiple passes were then performed, with contents emptied into an appr [facility] pathology specimen container. A bandage was applied to the area of access at completion of t he study. COMPARISON: 03/24/2022 and 03/05/2022 FINDINGS: Location(s) of lesion(s) sampled: Right inferior thyroid lobe Sanford: 25 gauge hypodermic needles. Number of passes: 6 Medications: 1% lidocaine for local anaesthesia. Complications: None. IMPRESSION: Successful ultrasound-guided right thyroid nodule fine needle aspiration, with cytology results toshia lee. Reviewed by: Kyle Amezquita MD on 07/23/2022 5:48 PM PDT Approved by: Kyle Amezquita MD on 07/23/2022 5:48 PM PDT Station ID: [id number]
== END 2022-07-23 09:32 | disposition home or self-care (01) ==
LOC: DI 09:31
PROVIDERS: ATTEND Internal Medicine Endocrinology, Diabetes & Metabolism
DX: E04.2 Nontoxic multinodular goiter (principal)
CPT/HCPCS: 10005

== ENCOUNTER 2022-09-02 19:14 | Emergency (ER) | payer MEDICARE, OTHER ==
--- NOTE | 2022-09-02 19:44 | ED Physician Documentation ---
History of Present Illness - Stated complaint Stated Complaint: CHEST PX - Chief complaint Chief Complaint: Cardiac - Additonal information Additional information: This is a very pleasant 71-year-old female that presents the emergency departm ent for evaluation of chest pain and shortness of air. I had just seen her for a laceration on his finger and they were walking out of the hospital when she began to have worsening shortness of air and substernal chest pain chest pressure. Patient and her report to me that the patient has a known history of aortic valve stenosis. She is scheduled to see cardiothoracic surgeon Dr. Gao on September [address] [facility] for consultation of aortic valve repair versus TAVR. They also report to me that she underwent coronary angiogram about 3 weeks ago, also at [facility], that showed clean coronaries. Patient takes a daily aspirin. Has no previous history of myocardial infarction. No focal neurodeficits. At the time of my exam she reports that the chest pain and chest pressure is resolving. No radiation of the pain. No nausea. No diaphoresis Review of Systems Constitutional: reports: Reviewed and negative Cardiac: reports: Chest pain / pressure Respiratory: reports: Reviewed and negative GI: reports: Reviewed and negative : reports: Reviewed and negative Skin: reports: Reviewed and negative PD PAST MEDICAL HISTORY - Past Medical History Cardiovascular: High cholesterol Respiratory: COPD Endocrine/Autoimmune: None GI: GERD, Other (no history of pancreatitis) : Kidney stones HEENT: None Psych: None Musculoskeletal: Osteoarthritis Derm: None - Past Surgical History Past Surgical History: Yes General: Colonoscopy /LEADER TIER: section, Hysterectomy, Oophrectomy Derm: Skin grafts - Present Medications Home Medications: Ambulatory Orders Medication Instructions Recorded Confirmed Calcium [Calcio Hanover] 500 mg PO DAILY 10/28/12 10/02/15 Cholecalciferol (Vitamin D3) 1,000 unit PO DAILY 10/28/12 09/16/14 [Vitamin D] Esomeprazole Magnesium [Nexium] 20 mg PO BID 10/28/12 10/02/15 Simvastatin [Zocor] 20 mg PO DAILY 10/28/12 10/02/15 HYDROcod/ACETAM 5/325 [Vicodin 1 - 2 ea PO Q6H PRN #15 tablet 09/16/14 10/02/15 5/325] Docusate Sodium 100 mg PO DAILY #20 capsule 06/02/17 Famotidine [Pepcid] 20 mg PO ONCE #30 tablet 06/02/17 HYDROcod/ACETAM 5/325 [Homestead 5/325] 1 tab PO Q6H PRN #15 tablet 06/02/17 Naproxen 375 mg PO BID #20 tablet 06/02/17 Ondansetron Odt [Zofran] 4 mg TL Q6H PRN #15 tablet 06/02/17 - Allergies Allergies/Adverse Reactions: Allergies Allergy/AdvReac Type Severity Reaction Status Date / Time aspirin AdvReac Mild Nausea Verified 09/02/22 19:20 - Social History Does the pt smoke?: Yes Smoking Status: Current every day smoker Does the pt drink ETOH?: No Does the pt have substance abuse?: No - Immunizations Immunizations are current?: Yes PD ED PE NORMAL - General General: Alert and oriented X 3, No acute distress, Well developed/nourished - HEENT HEENT: Atraumatic, Moist mucous membranes - Neck Neck: Supple, no meningeal sign, No adenopathy - Cardiac Cardiac: RRR. No: No murmur (3/6 systolic murmur) - Respiratory Respiratory: No respiratory distress, Clear bilaterally - Abdomen Abdomen: Normal bowel sounds, Soft, Non tender Results - Vitals Vitals: Vital Signs - 24 hr 09/02/22 09/02/22 19:17 20:33 Temperature 35.7 C L Heart Rate 99 80 Respiratory 16 16 Rate Blood Pressure 145/93 H 136/71 H O2 Saturation 99 91 L Oxygen O2 Source Room air - EKG (time done) 1925 EKG releavant findings:: EKG personally interpreted by author of this note. Relevant findings are: Rate: Rate (enter#) (91) Rhythm: NSR Boomer: LAD Intervals: Normal VA. No: Prolonged QT QRS: Normal Ischemia: Normal ST segments Compare to prior EKG: Unchanged from prior EKG Computer interpretation: Agree with computer - Labs Labs: Laboratory Tests 09/02/22 09/02/22 09/02/22 19:31 19:49 19:49 WBC 8.2 RBC 4.60 Hgb 13.6 Hct 42.9 MCV 93.3 MCH 29.6 MCHC 31.7 L RDW 14.0 Plt Count 234 MPV 9.1 Neut # (Auto) 3.6 Lymph # (Auto) 3.7 H Fountain # (Auto) 0.7 Eos # (Auto) 0.2 Baso # (Auto) 0.0 Absolute Nucleated RBC 0.00 Nucleated RBC % 0.0 Sodium 141 Potassium 3.8 Chloride 105 Carbon Dioxide 26 Anion Gap 10.0 BUN 14 Creatinine 0.6 Estimated GFR (MDRD) 99 Glucose 97 Calcium 9.2 Total Bilirubin 0.7 AST 26 ALT 22 Alkaline Phosphatase 52 Troponin I High Sens 7.8 Total Protein 7.2 Albumin 4.0 Globulin 3.2 Albumin/Globulin Ratio 1.3 Lipase 42 - Rads (name of study) cxr Relevant Findings:: Final report received (No acute cardiopulmonary process) PD Medical Decision Making - ED course Complexity details: reviewed results, re-evaluated patient, considered differential, d/w patient ED course: This is a 71-year-old female who has a known history of severe aortic stenosis that comes into the emergency department for evaluation of worsening shortness of air and chest pain that developed when she was ambulating. Her had actually been seen by myself for finger laceration and she developed the chest pain and shortness of air when leaving the department. She reports that she always has shortness of air but she has never had the exertional chest pain. She is scheduled to see cardiothoracic surgeon Dr. Gao this upcoming Wednesday at [facility] for consultation of valve repair versus TAVR. She and her also report that she underwent coronary angiogram at [facility] about 3 weeks ago and were told she had minimal plaquing calcifications. Chest x-ray showed no acute cardiopulmonary process. CBC and electrolytes per my interpretation showed no acute worrisome findings. Her initial troponin was negative. A delta troponin is pending for around 11 PM. Here in the ER at rest she is free of pain. Her vital signs show no tachycardia or hypotension. Her EKG per my interpretation shows a sinus rhythm without ischemic findings. Her pain episode began just about 7:15 PM. As such she will need a delta Trope at about the 4-hour jonathon to ensure no acute coronary event. Assuming a second troponin is negative she is likely stable for discharge home given reported history of recent clean coronary arteries. The shortness of breath is expected in the setting of known aortic stenosis. Patient signed out to my nighttime colleague to follow-up on repeat troponin. If negative patient stable for discharge home to continue appropriate follow-up with CT surgery as already scheduled this upcoming Wednesday Departure - Departure Clinical Impression: Exertional chest pain, History of aortic stenosis Comments: You were seen today in the emergency department because you developed some increasing shortness of breath as well as chest pain when you were walking out of the emergency department. The shortness of breath is not unexpected with your history of aortic stenosis. It is going to be very important that you moves slowly until you are seen by the cardiothoracic surgeon. I did obtain 2 sets of labs called troponin which can be elevated in setting for patients have had heart attacks. Both of these were negative. It is important to discuss this ED visit with your doctors as well as your CT surgeon. If at any point you develop chest pain that does not resolve with rest, you have any fainting episodes, or severely short of air despite rest then please return to the ER for a second evaluation
[2022-09-02 19:54] LABS: BASOPHILS % (AUTO) 0.5 %; EOSINOPHILS # (AUTO) 0.2 10^3/uL (0.0-0.7); EOSINOPHILS % (AUTO) 1.8 %; HCT - HEMATOCRIT 42.9 % (37.0-47.0); HGB - HEMOGLOBIN 13.6 g/dL (12.0-16.0); LYMPHOCYTES # (AUTO) 3.7 10^3/uL (1.5-3.5); LYMPHOCYTES % (AUTO) 44.6 %; MEAN CORPUSCULAR HEMOGLOBIN 29.6 pg (27.0-31.0); MEAN CORPUSCULAR HGB CONC 31.7 g/dL (32.0-36.0); MEAN CORPUSCULAR VOLUME 93.3 fL (81.0-99.0); MEAN PLATELET VOLUME 9.1 fL (7.9-10.8); MONOCYTES # (AUTO) 0.7 10^3/uL (0.0-1.0); MONOCYTES % (AUTO) 8.8 %; NEUTROPHILS # (AUTO) 3.6 10^3/uL (1.5-6.6); NEUTROPHILS % (AUTO) 44.1 %; PLT - PLATELET COUNT 234 10^3/uL (130-450); WHITE BLOOD COUNT 8.2 x10^3/uL (4.8-10.8)
--- NOTE | 2022-09-02 19:54 | XRAY Report ---
PROCEDURE: Chest 1 View X-Ray INDICATIONS: Chest Pain TECHNIQUE: One view of the chest was acquired. COMPARISON: 08/19/2018 FINDINGS: Surgical changes and devices: None. Lungs and pleura: No pleural effusions or pneumothorax. Lungs are clear. Mediastinum: Mediastinal contours appear normal. Heart size is normal. Bones and chest wall: No suspicious bony lesions. Overlying soft tissues appear unremarkable. IMPRESSION: No acute process. Reviewed by: Philly Wilson MD on 09/02/2022 7:53 PM PDT Approved by: Philly Wilson MD on 09/02/2022 7:53 PM PDT Station ID: [id number]
--- OUTSIDE RECORDS SUMMARY | 2022-09-02 20:08 | EXTERNAL MEDICAL SUMMARY RPT | Continuity of Care Document ---
:1950 Author Organization [facility] Address [address] [place] [address] Phone Allergies No information. Encounters No information. Functional Status No information. Immunizations No information. Medications No information. Problems date description facility 2022-07-16 09:11 Cardiac murmur, unspecified [facility] Procedures No information. Results/Labs test date author facility value unit interpret ation Result panel 1 (unknown) (no (unknown) (unknown) (no value) (units (unk nown) date) unknown) (unknown) (no (unknown) (unknown) [id number] (units (unkn own) date) unknown) (unknown) (no (unknown) (unknown) 07/16/22 (units (unkno wn) date) unknown) (unknown) (no (unknown) (unknown) [address] [place] [address] (units ( unknown) date) unknown) (unknown) (no (unknown) (unknown) [address] [place] [address] (units (unknown) date) unknown) (unknown) (no (unknown) (unknown) 2D and M-Mode (units ( unknown) date) Measurements and unknown) Calculations (unknown) (no (unknown) (unknown) 51 mmHg. (units (unkno wn) date) Calculated valve unknown) area is 0.8 grinder operator external tool?. (unknown) (no (unknown) (unknown) 8: 28 AM (units (unkno wn) date) unknown) (unknown) (no (unknown) (unknown) sev ratio: 0.19 (units (unknown) date) unknown) (unknown) (no (unknown) (unknown) ROSALINDA indexed to BSA (units (unknown) date) (cm2/m2): 0.45 unknown) (unknown) (no (unknown) (unknown) ROSALINDA(I,D): 0.76 (units (unknown) date) grinder operator external tool? unknown) (unknown) (no (unknown) (unknown) ROSALINDA(V,D): 0.68 (units (unknown) date) grinder operator external tool? unknown) (unknown) (no (unknown) (unknown) Accession Number: (units (unknown) date) [id number] unknown) (unknown) (no (unknown) (unknown) Age/Sex: 71 / F (units (unknown) date) Date of Service: unknown) (unknown) (no (unknown) (unknown) Age: 71 Years (units ( unknown) date) Weight: 150 lb unknown) (unknown) (no (unknown) (unknown) [place], [place] (units ( unknown) date) [id number] unknown) (unknown) (no (unknown) (unknown) Ao Arch Diam (Prox (units (unknown) date) Trans): 2.11 cm unknown) (unknown) (no (unknown) (unknown) Ao V2 VTI: 92.2 cm (units (unknown) date) unknown) (unknown) (no (unknown) (unknown) Ao V2 max: 452.3 (units (unknown) date) cm/sec unknown) (unknown) (no (unknown) (unknown) Ao V2 mean: 331.1 (units (unknown) date) cm/sec unknown) (unknown) (no (unknown) (unknown) Ao max P.9 (units (unknown) date) mmHg unknown) (unknown) (no (unknown) (unknown) Ao mean P.0 (units (unknown) date) mmHg unknown) (unknown) (no (unknown) (unknown) Ao root diam: 3.3 (units (unknown) date) cm unknown) (unknown) (no (unknown) (unknown) Aortic Valve: The (units (unknown) date) aortic valve is unknown) severely calcified. There is severe aortic (unknown) (no (unknown) (unknown) Aortic valve (units (u nknown) date) leaflets are not unknown) well seen but appear at least moderately (unknown) (no (unknown) (unknown) Atria: The left (units (unknown) date) atrial size is unknown) normal. Right atrium not well visualized. There (unknown) (no (unknown) (unknown) BSA: 1.67 mA? (units ( unknown) date) unknown) (unknown) (no (unknown) (unknown) Clinician: Debbi (units (unknown) date) [place] unknown) (unknown) (no (unknown) (unknown) : 1950 (units (unknown) date) Acct:[id number] unknown) (unknown) (no (unknown) (unknown) : 1950 (units (unknown) date) BP: 120 / 80 mmHg unknown) (unknown) (no (unknown) (unknown) Diastolic function (units (unknown) date) could not be unknown) accurately assessed due to confounding (unknown) (no (unknown) (unknown) Doppler (units (unkno wn) date) Measurements and unknown) Calculations (unknown) (no (unknown) (unknown) Doppler was (units (un known) date) performed. The unknown) study quality was technically difficult. There is (unknown) (no (unknown) (unknown) E/e' average: 13.9 (units (unknown) date) unknown) (unknown) (no (unknown) (unknown) Echocardiography (units (unknown) date) Report unknown) (unknown) (no (unknown) (unknown) Electronically (units (unknown) date) signed by: Tawana unknown) Joo Jansen (unknown) (no (unknown) (unknown) Gender: Female (units (unknown) date) Height: 61 in unknown) (unknown) (no (unknown) (unknown) Great Vessels: The (units (unknown) date) aortic root is unknown) normal size. The dimensions of the ascending (unknown) (no (unknown) (unknown) History: (units (unkno wn) date) unknown) (unknown) (no (unknown) (unknown) IVC diam: 1.28 cm (units (unknown) date) unknown) (unknown) (no (unknown) (unknown) IVSd: 1.06 cm (units ( unknown) date) unknown) (unknown) (no (unknown) (unknown) (units (unknown) date) unknown) (unknown) (no (unknown) (unknown) LA A2 area: 13.2 (units (unknown) date) grinder operator external tool? unknown) (unknown) (no (unknown) (unknown) LA A4 area: 12.9 (units (unknown) date) grinder operator external tool? unknown) (unknown) (no (unknown) (unknown) LA length (vol): (units (unknown) date) 4.8 cm unknown) (unknown) (no (unknown) (unknown) LA vol index: 18.2 (units (unknown) date) ml/mA? unknown) (unknown) (no (unknown) (unknown) LA vol: 30.4 ml (units (unknown) date) unknown) (unknown) (no (unknown) (unknown) LV V1 VTI: 17.8 cm (units (unknown) date) unknown) (unknown) (no (unknown) (unknown) LV V1 max P.41 (units (unknown) date) mmHg unknown) (unknown) (no (unknown) (unknown) LV win. (units (unkno wn) date) diameter/BSA unknown) (cm/m2): 2.20 (unknown) (no (unknown) (unknown) LV sys. (units (unkno wn) date) diameter/BSA unknown) (cm/m2): 1.29 (unknown) (no (unknown) (unknown) LVIDd: 3.7 cm (units ( unknown) date) unknown) (unknown) (no (unknown) (unknown) LVIDs: 2.16 cm (units (unknown) date) unknown) (unknown) (no (unknown) (unknown) LVOT Max José Antonio: 77.5 (units (unknown) date) cm/sec unknown) (unknown) (no (unknown) (unknown) LVOT diam: 2.24 cm (units (unknown) date) unknown) (unknown) (no (unknown) (unknown) LVPWd: 0.94 cm (units (unknown) date) unknown) (unknown) (no (unknown) (unknown) Lat Peak E' José Antonio: (units (unknown) date) 3.8 cm/sec unknown) (unknown) (no (unknown) (unknown) Left Ventricle: (units (unknown) date) The left ventricle unknown) is normal in size. There is mild concentric (unknown) (no (unknown) (unknown) Loc: ECHO (units (unkn own) date) unknown) (unknown) (no (unknown) (unknown) (units (unknown) date) unknown) (unknown) (no (unknown) (unknown) MV A max josé antonio: (units ( unknown) date) 103.8 cm/sec unknown) (unknown) (no (unknown) (unknown) MV E max josé antonio: 62.8 (units (unknown) date) cm/sec unknown) (unknown) (no (unknown) (unknown) MV E/A: 0.61 (units (u nknown) date) unknown) (unknown) (no (unknown) (unknown) MV dec time: 0.23 (units (unknown) date) sec unknown) (unknown) (no (unknown) (unknown) Med Peak E' José Antonio: (units (unknown) date) 5.5 cm/sec unknown) (unknown) (no (unknown) (unknown) Mitral Valve: The (units (unknown) date) mitral valve is unknown) normal in structure and function. There is (unknown) (no (unknown) (unknown) Name: JAMIE (units (unknown) date) RACHAEL Johnston Study unknown) Date: 07/16/2022, (unknown) (no (unknown) (unknown) No prior study (units (unknown) date) available for unknown) comparison. (unknown) (no (unknown) (unknown) Normal LV size and (units (unknown) date) the increased wall unknown) thickness. Normal wall motion and LV (unknown) (no (unknown) (unknown) Normal chamber (units (unknown) date) sizes. unknown) (unknown) (no (unknown) (unknown) Normal sinus (units (u nknown) date) rhythm. unknown) (unknown) (no (unknown) (unknown) Ordering Provider: (units (unknown) date) Judi Foster MD unknown) (unknown) (no (unknown) (unknown) Ordering: (units (unkn own) date) JUDI FOSTER unknown) (unknown) (no (unknown) (unknown) Otherwise no (units (u nknown) date) significant unknown) valvular abnormalities. (unknown) (no (unknown) (unknown) PA V2 max: 95.3 (units (unknown) date) cm/sec unknown) (unknown) (no (unknown) (unknown) PA mean P.03 (units (unknown) date) mmHg unknown) (unknown) (no (unknown) (unknown) Patient: (units (unkno wn) date) Rachael Raines unknown) MR#: M (unknown) (no (unknown) (unknown) Pericardium/ (units (u nknown) date) Pleura: There is no unknown) pericardial effusion. There is an anterior (unknown) (no (unknown) (unknown) Procedure: A (units (u nknown) date) two-dimensional unknown) transthoracic echocardiogram with color flow and (unknown) (no (unknown) (unknown) Procedure: EC echo (units (unknown) date) doppler complete unknown) (unknown) (no (unknown) (unknown) Pulmonic Valve: (units (unknown) date) The pulmonic valve unknown) is not well visualized. There is trace (unknown) (no (unknown) (unknown) Reason For Study: (units (unknown) date) CARDIAC MURMUR unknown) (unknown) (no (unknown) (unknown) Referring: (units (unk nown) date) JUDI FOSTER unknown) (unknown) (no (unknown) (unknown) Right Ventricle: (units (unknown) date) The right ventricle unknown) is not well visualized. (unknown) (no (unknown) (unknown) SV(LVOT): 70.1 ml (units (unknown) date) unknown) (unknown) (no (unknown) (unknown) Signed (units (unkno wn) date) unknown) (unknown) (no (unknown) (unknown) Study ID: [id number] (units (unknown) date) unknown) (unknown) (no (unknown) (unknown) Summary Statements (units (unknown) date) unknown) (unknown) (no (unknown) (unknown) Tricuspid Valve: (units (unknown) date) The tricuspid valve unknown) is not well visualized. Pulmonary artery (unknown) (no (unknown) (unknown) Version: 1 (units (unk nown) date) unknown) (unknown) (no (unknown) (unknown) Tawana Ge (units (unknown) date) Inderjit 07/16/2022, 7: unknown) 50 PM (unknown) (no (unknown) (unknown) (units (unknown) date) unknown) ___ (unknown) (no (unknown) (unknown) aorta are normal. (units (unknown) date) The IVC is of unknown) normal diameter and collapses greater than 50% (unknown) (no (unknown) (unknown) asc Aorta Diam: (units (unknown) date) 3.6 cm unknown) (unknown) (no (unknown) (unknown) associated aortic (units (unknown) date) stenosis with peak unknown) velocity of 4.5 m/s and mean gradient of (unknown) (no (unknown) (unknown) echo-free space (units (unknown) date) consistent with a unknown) fat pad. There is no pleural effusion. (unknown) (no (unknown) (unknown) gradient is 51 (units (unknown) date) mmHg. The unknown) calculated aortic valve area is 0.76 cm2. No aortic (unknown) (no (unknown) (unknown) is no Doppler (units ( unknown) date) evidence for an unknown) interatrial shunt. (unknown) (no (unknown) (unknown) left ventricular (units (unknown) date) hypertrophy. The unknown) ejection fraction is estimated to be 65-70%. (unknown) (no (unknown) (unknown) no mitral (units (unkn own) date) regurgitation unknown) noted. (unknown) (no (unknown) (unknown) no prior (units (unkno wn) date) echocardiogram unknown) noted for this patient. The patient was in sinus (unknown) (no (unknown) (unknown) pressures cannot (units (unknown) date) be estimated unknown) because of the lack of a measurable TR jet (unknown) (no (unknown) (unknown) pulmonic (units (unkno wn) date) regurgitation. unknown) (unknown) (no (unknown) (unknown) regurgitation is (units (unknown) date) present. unknown) (unknown) (no (unknown) (unknown) rhythm with heart (units (unknown) date) rates between 75-95 unknown) bpm during the exam. (unknown) (no (unknown) (unknown) stenosis. The peak (units (unknown) date) aortic velocity is unknown) 4.5 m/sec. The aortic valve mean (unknown) (no (unknown) (unknown) systolic function. (units (unknown) date) Ejection fraction unknown) is 65-70%. (unknown) (no (unknown) (unknown) thickened and (units ( unknown) date) calcified. Cannot unknown) exclude bicuspid aortic valve. There is severe (unknown) (no (unknown) (unknown) valvular disease. (units (unknown) date) unknown) (unknown) (no (unknown) (unknown) velocity. (units (unkn own) date) unknown) (unknown) (no (unknown) (unknown) with a sniff. This (units (unknown) date) suggests a low unknown) right atrial pressure of 3 mm Hg. Social History No information. Vital Signs No information.
[2022-09-02 20:33] LABS: ALBUMIN/GLOBULIN RATIO 1.3 (1.0-2.2); BILIRUBIN,TOTAL 0.7 mg/dL (0.2-1.0); CALCIUM 9.2 mg/dL (8.5-10.3); CREATININE 0.6 mg/dL (0.4-1.0); POTASSIUM 3.8 mmol/L (3.5-5.0); TOTAL PROTEIN 7.2 g/dL (6.7-8.2)
--- NOTE | 2022-09-02 20:42 | ED Physician Documentation ---
ED Addendum - Addendum Addendum: 09/02/22 20:41 Patient endorsed to me by VALERIY Rausch pending 2nd troponin. plan to dc home pending normal trop to f.u with her CT surgeon for repair. Return precautions given. 09/03/22 00:27 2nd trop negative. patient asympomatic. return precautions given. plan to f/u ct surgeon and pcp. Impression 1. aortic stenosis 2. exertional chest pain Disposition home Condition stable
[2022-09-03 00:13] VITALS: BP 142/78
== END 2022-09-03 00:34 | disposition home or self-care (01) ==
LOC: ED 19:14
DX: I35.0 Nonrheumatic aortic (valve) stenosis (principal); R07.9 Chest pain, unspecified; F17.200 Nicotine dependence, unspecified, uncomplicated
CPT/HCPCS: 36415; 80053; 83690; 84484; 85025; 93005; 99284

== ENCOUNTER 2022-11-09 14:13 | Emergency (ER) | payer MEDICARE, OTHER ==
--- NOTE | 2022-11-09 14:38 | ED Physician Documentation ---
History of Present Illness - Stated complaint Stated Complaint: STINTS LEAKING - Additonal information Additional information: Very pleasant 71-year-old female presents the emergency department for concerns that her femoral arterial stent is leaking. The patient underwent a TAVR October 28 at [facility] with cardiovascular surgery. They used a femoral approach. Patient states that when they removed the catheter from the left artery it began to bleed so a stent was placed. She was briefly hospitalized overnight. She is currently taking a daily aspirin and Plavix. Over the last 24 hours that she has noticed small drops of blood on the bandages at both of the entrance sites of her bilateral groin but she is also begun to have some pain where the stent was placed. She denies having leg pain. The leg is not discolored or cyanotic. She called her street sweeper who told her to come here. Patient is denying any chest pain or shortness of air. No recent falls or trauma. 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 TECHNICIAN: section, Hysterectomy, Oophrectomy Derm: Skin grafts - Present Medications Home Medications: Ambulatory Orders Medication Instructions Recorded Confirmed Calcium [Calcio Boyd] 500 mg PO DAILY 10/28/12 10/02/15 Cholecalciferol (Vitamin D3) 1,000 unit PO DAILY 10/28/12 09/16/14 [Vitamin D] Esomeprazole Magnesium [Nexium] 20 mg PO BID 10/28/12 10/02/15 Simvastatin [Zocor] 20 mg PO DAILY 10/28/12 10/02/15 HYDROcod/ACETAM 5/325 [Vicodin 1 - 2 ea PO Q6H PRN #15 tablet 09/16/14 10/02/15 5/325] Docusate Sodium 100 mg PO DAILY #20 capsule 06/02/17 Famotidine [Pepcid] 20 mg PO ONCE #30 tablet 01/31/18 HYDROcod/ACETAM 5/325 [Orwell 5/325] 1 tab PO Q6H PRN #15 tablet 06/02/17 Naproxen 375 mg PO BID #20 tablet 06/02/17 Ondansetron Odt [Zofran] 4 mg TL Q6H PRN #15 tablet 06/02/17 - Allergies Allergies/Adverse Reactions: Allergies Allergy/AdvReac Type Severity Reaction Status Date / Time aspirin AdvReac Mild Nausea Verified 11/09/22 14:37 - Social History Does the pt smoke?: Yes Smoking Status: Current every day smoker Does the pt drink ETOH?: No Does the pt have substance abuse?: No - Immunizations Immunizations are current?: Yes PD ED PE NORMAL - General General: Alert and oriented X 3, No acute distress - HEENT HEENT: PERRL - Cardiac Cardiac: RRR. No: No murmur - Respiratory Respiratory: No respiratory distress, Clear bilaterally - Extremities Extremities: Other (Bilateral lower extremities are warm well perfused with brisk cap refill. I was unable to appreciate pulses at either femoral or DP sites but they were easily obtainable and biphasic with a Doppler.) - Neuro Neuro: Alert and oriented X 3 Eye Opening: Spontaneous Motor: Obeys Commands Verbal: Oriented GCS Score: 15 Results - Vitals Vitals: Vital Signs - 24 hr 11/09/22 11/09/22 14:30 15:33 Temperature 36.1 C L Heart Rate 89 75 Respiratory 20 16 Rate Blood Pressure 142/81 H 152/86 H O2 Saturation 96 95 Oxygen O2 Source Room air - Labs Labs: Laboratory Tests 11/09/22 11/09/22 11/09/22 14:52 14:52 14:52 WBC 6.8 RBC 3.86 L Hgb 11.4 L Hct 36.6 L MCV 94.8 MCH 29.5 MCHC 31.1 L RDW 14.9 Plt Count 354 MPV 8.7 Neut # (Auto) 3.6 Lymph # (Auto) 2.4 [place] # (Auto) 0.6 Eos # (Auto) 0.1 Baso # (Auto) 0.0 Absolute Nucleated RBC 0.00 Nucleated RBC % 0.0 PT 11.9 INR 1.1 Sodium 142 Potassium 4.0 Chloride 105 Carbon Dioxide 30 Anion Gap 7.0 BUN 10 Creatinine 0.7 Estimated GFR (MDRD) 82 L Glucose 107 H Calcium 9.3 Total Bilirubin 0.5 AST 24 ALT 19 Alkaline Phosphatase 58 Total Protein 7.0 Albumin 3.8 Globulin 3.2 Albumin/Globulin Ratio 1.2 Lipase 41 - Rads (name of study) Arterial US Bilateral lower Relevant Findings:: Final report received (Left CERTIFIED HYPERBARIC TECHNOLOGIST stent. Elevated velocity in the proximal left SFA. Small left groin fluid collection or hematoma measuring 1.5 cm. Tiny right groin fluid collection or hematoma measuring 0.7 cm), Other PD Medical Decision Making - ED course Complexity details: reviewed results, re-evaluated patient, considered di fferential, d/w patient ED course: 71-year-old female presents the emergency department for evaluation of concerns that the left CERTIFIED HYPERBARIC TECHNOLOGIST stent in place is coming loose. She had a TAVR completed at [facility] October 28. She reports that when the catheter was removed from the femoral artery she had prolonged bleeding and therefore the decision was made to place a CERTIFIED HYPERBARIC TECHNOLOGIST stent. She was briefly hospitalized and then discharged where she has been rehabilitating until yesterday when she noticed that there was a small amount of pain near the stent site as well as a drop of blood on her bandage. She presents the emergency department alert and well-appearing. She has easily obtained biphasic Doppler pulses in the femoral popliteal and dorsalis pedis of the leg. It is warm and well-perfused. It is not painful. I did obtain a CBC and electrolytes that show no worrisome anemia or severe electrolyte derangement. Subsequently a left leg ultrasound was obtained which showed a patent left CERTIFIED HYPERBARIC TECHNOLOGIST stent though there was a small amount of hematoma 1.5 cm. Subsequently I spoke with street sweeper at [facility] Dr. Montgomery Who was a part of the procedure. Based on the information I have relayed to him as well as his ability to review the images he feels that the patient is stable for discharge home. She can continue her dual antiplatelet medications. He will reach out to the TAVR machine operator packaging to see if they want to see her in follow-up sooner. The usual emergent return precautions were discussed for concerns of new hematoma development, new bruising, worsening leg pain or bleeding from the operative site Departure - Departure Disposition: 01 Home, Self Care Clinical Impression: Groin hematoma Qualifiers: Encounter type: initial encounter Qualified Code(s): S30.1XXA - Contusion of abdominal wall, initial encounter Condition: Stable Record reviewed to determine appropriate education?: Yes Comments: Rachael you are seen today because you have developed some pain in your left groin as well as having a spot of blood where the catheters were placed. An ultrasound shows a very small fluid collection 1.5 cm wide. This is either a small collection of blood or hematoma or could also possibly be a seroma which is a small collection of fluid that can occur after any surgery. Your labs today were normal. The street sweeper at [facility] who was a part of your procedure was able to review the ultrasound imaging and he feels that you are safe for discharge home and to continue your usual care and medications. Reasons to return to the emergency department would include sudden severe left leg pain, a large amount of bleeding from the sites, a large amount of bruising in the leg that develops as new, or discoloration or cold pale leg.
[2022-11-09 15:12] LABS: BASOPHILS % (AUTO) 0.6 %; EOSINOPHILS # (AUTO) 0.1 10^3/uL (0.0-0.7); EOSINOPHILS % (AUTO) 1.9 %; HCT - HEMATOCRIT 36.6 % (37.0-47.0); HGB - HEMOGLOBIN 11.4 g/dL (12.0-16.0); LYMPHOCYTES # (AUTO) 2.4 10^3/uL (1.5-3.5); LYMPHOCYTES % (AUTO) 36.1 %; MEAN CORPUSCULAR HEMOGLOBIN 29.5 pg (27.0-31.0); MEAN CORPUSCULAR HGB CONC 31.1 g/dL (32.0-36.0); MEAN CORPUSCULAR VOLUME 94.8 fL (81.0-99.0); MEAN PLATELET VOLUME 8.7 fL (7.9-10.8); MONOCYTES # (AUTO) 0.6 10^3/uL (0.0-1.0); MONOCYTES % (AUTO) 8.6 %; NEUTROPHILS # (AUTO) 3.6 10^3/uL (1.5-6.6); NEUTROPHILS % (AUTO) 52.5 %; PLT - PLATELET COUNT 354 10^3/uL (130-450); RED BLOOD COUNT 3.86 10^6/uL (4.20-5.40); RED CELL DISTRIBUTION WIDTH 14.9 % (12.0-15.0); WHITE BLOOD COUNT 6.8 x10^3/uL (4.8-10.8)
[2022-11-09 15:25] LABS: ALBUMIN 3.8 g/dL (3.2-5.5); ALBUMIN/GLOBULIN RATIO 1.2 (1.0-2.2); BILIRUBIN,TOTAL 0.5 mg/dL (0.2-1.0); CALCIUM 9.3 mg/dL (8.5-10.3); CREATININE 0.7 mg/dL (0.4-1.0)
[2022-11-09 15:29] LABS: INR 1.1 (0.8-1.2); PT - PROTHROMBIN TIME 11.9 secs (9.9-12.6)
--- NOTE | 2022-11-09 16:10 | Ultrasound Report ---
PROCEDURE: Duplex Lwr Ext Arterial Bilat INDICATIONS: tavr; needed femoral arterial stent. now bleeding TECHNIQUE: Color and pulse Doppler interrogation was performed of both lower extremity arterial systems proximal aspect, with image documentation. COMPARISON: None. FINDINGS: Right lower extremity: Common femoral artery: 48 cm/sec, with biphasic flow. Deep femoral artery: 49 cm/sec, with triphasic flow. Proximal superficial femoral artery: 77 cm/sec, with triphasic flow. Right groin fluid collection measuring 0.7 cm. Left lower extremity: Common femoral artery: 44 cm/sec, with triphasic flow. Stent is present. Deep femoral artery: 40 cm/sec, with triphasic flow. Proximal superficial femoral artery: 107 cm/sec, with biphasic flow. Left groin subcutaneous fluid collection measuring 1.5 x 1.4 x 0.5 cm. IMPRESSION: 1. Small left groin fluid collection or hematoma measuring 1.5 cm. Tiny right groin fluid collection or hematoma measuring 0.7 cm. 2. Left BUSINESS PERFORMANCE ADVISOR stent. 3. Elevated velocity in the proximal left SFA. Reviewed by: Obi Razo MD on 11/09/2022 4:09 PM PDT Approved by: Obi aRzo MD on 11/09/2022 4:09 PM PDT Station ID: [id number]
[2022-11-09 19:29] VITALS: BP 146/54
== END 2022-11-09 19:34 | disposition home or self-care (01) ==
LOC: ED 14:13
DX: S30.1XXA Contusion of abdominal wall, initial encounter (principal); X58.XXXA Exposure to other specified factors, initial encounter; J44.9 Chronic obstructive pulmonary disease, unspecified; E78.00 Pure hypercholesterolemia, unspecified; F17.200 Nicotine dependence, unspecified, uncomplicated; Z79.899 Other long term (current) drug therapy
CPT/HCPCS: 36415; 80053; 83690; 85025; 85610; 93925; 99283; 99284

== ENCOUNTER 2022-12-25 11:39 | Outpatient (CLI) | payer MEDICARE, OTHER ==
[2022-12-25 18:03] LABS: BASOPHILS % (AUTO) 0.6 %; EOSINOPHILS # (AUTO) 0.1 10^3/uL (0.0-0.7); EOSINOPHILS % (AUTO) 1.3 %; HCT - HEMATOCRIT 45.1 % (37.0-47.0); LYMPHOCYTES # (AUTO) 2.3 10^3/uL (1.5-3.5); MEAN CORPUSCULAR HEMOGLOBIN 29.5 pg (27.0-31.0); MEAN CORPUSCULAR VOLUME 95.1 fL (81.0-99.0); MEAN PLATELET VOLUME 9.5 fL (7.9-10.8); MONOCYTES # (AUTO) 0.5 10^3/uL (0.0-1.0); MONOCYTES % (AUTO) 8.1 %; NEUTROPHILS # (AUTO) 3.3 10^3/uL (1.5-6.6); PLT - PLATELET COUNT 261 10^3/uL (130-450); RED BLOOD COUNT 4.74 10^6/uL (4.20-5.40); RED CELL DISTRIBUTION WIDTH 14.4 % (12.0-15.0); WHITE BLOOD COUNT 6.3 x10^3/uL (4.8-10.8)
[2022-12-25 18:09] LABS: ALBUMIN 4.5 g/dL (3.2-5.5); ALBUMIN/GLOBULIN RATIO 1.4 (1.0-2.2); ALKALINE PHOSPHATASE 67 IU/L (42-121); ALT ALANINE AMINOTRANSFERASE 21 IU/L (10-60); AST ASPARTATE AMINOTRANSFERASE 26 IU/L (10-42); BILIRUBIN,TOTAL 0.6 mg/dL (0.2-1.0); BUN - BLOOD UREA NITROGEN 12 mg/dL (6-20); CALCIUM 10.2 mg/dL (8.5-10.3); CARBON DIOXIDE - CO2 33 mmol/L (21-32); CHLORIDE 102 mmol/L (101-111); CHOL/HDL RATIO 2.8 (<4.4); CHOLESTEROL 152 mg/dL; CREATININE 0.6 mg/dL (0.6-1.3); GFR - MDRD 98 (>89); GLUCOSE 101 mg/dL (74-104); HDL CHOLESTEROL 54 mg/dL; LDL CHOLESTEROL,CALCULATED 66 mg/dL; LDL/HDL RATIO 1.2 (<4.4); POTASSIUM 3.9 mmol/L (3.5-4.5); SODIUM 140 mmol/L (135-145); TOTAL PROTEIN 7.7 g/dL (6.4-8.9); TRIGLYCERIDES 159 mg/dL (48-352); VLDL CHOLESTEROL 32 mg/dL
== END 2022-12-25 11:40 | disposition home or self-care (01) ==
LOC: LAB.N 11:39
PROVIDERS: ATTEND Internal Medicine
DX: E78.5 Hyperlipidemia, unspecified (principal); Z95.2 Presence of prosthetic heart valve; E04.1 Nontoxic single thyroid nodule
CPT/HCPCS: 36415; 80053; 80061; 83721; 84443; 85025

== ENCOUNTER 2023-01-28 07:57 | Outpatient (CLI) | payer MEDICARE, OTHER ==
--- NOTE | 2023-01-28 10:28 | Ultrasound Report ---
PROCEDURE: Duplex Aorta Complete INDICATIONS: BILATERAL GROIN PAIN, HX OF TOBACCO USE TECHNIQUE: Grayscale and Doppler ultrasound images of the aorta and iliac arteries were performed wit h waveform analysis. COMPARISON: None. FINDINGS: Peak systolic velocities in the proximal, mid, and distal aorta are 82, 38, and 43 cm/s. Peak systolic velocities in the right common iliac artery, external iliac artery, and FOOD PRODUCTION SUPERVISOR are 118, 11 7, and 387 cm/s. Peak systolic velocities in the left common iliac artery, external iliac artery, and FOOD PRODUCTION SUPERVISOR are 99, 79, and 90 cm/s. The left FOOD PRODUCTION SUPERVISOR stent is patent. IMPRESSION: 1. Elevated velocities in the right common femoral artery consistent with greater than 50% stenosis. 2. The left FOOD PRODUCTION SUPERVISOR stent is patent. 3. No pseudoaneurysm. Reviewed by: Agus Sheikh on 01/28/2023 10:26 AM PDT Approved by: Agus Sheikh on 01/28/2023 10:26 AM PDT Station ID: [id number]
--- NOTE | 2023-01-28 10:38 | CT Report ---
PROCEDURE: Low Dose Lung Cancer Screen INDICATIONS: HX OF TOBACCO USE TECHNIQUE: A CT scan of the chest was performed. Intravenous contrast media was not administered. Images were re corded and evaluated at appropriate window settings. Reformats: axial MIP of the chest, coronal and s agittal. For radiation dose reduction, the following was used: automated exposure control, adjustment of mA and/or kV according to patient size. COMPARISON: CT of the chest 02/19/2016 FINDINGS: Image quality: Excellent. Prior cancer history: No. Lungs and pleura: 4 mm nodule in the right lower lobe medially unchanged compared to prior CT on 01/31. No pleural effusions. No pneumothorax. No suspicious pulmonary nodules which require follow up. Mediastinum: Heart size is normal. TAVR has been performed. Coronary artery calcifications. No perica rdial effusion. No large vessel abnormality. No mediastinal adenopathy by size criteria. Chest wall and lower neck: Thyroid is unremarkable. No axillary or supraclavicular adenopathy by size . Bones: No aggressive osseous abnormality. Upper Abdomen: Unremarkable. IMPRESSION: 1. 4 mm nodule in the right lower lobe medially stable since 02/19/2016 and therefore presumed benign . 2. Coronary artery calcifications. Lung RAD: 2 - Benign. Recommendation: Continue annual screening in 12 Months with LDCT Non-Lung Significant Findings: . Coronary artery calcifications. Reviewed by: Agus Sheikh on 01/28/2023 10:37 AM PDT Approved by: Agus Sheikh on 01/28/2023 10:37 AM PDT Station ID: [id number]
== END 2023-01-28 07:58 | disposition home or self-care (01) ==
LOC: DI 07:57
PROVIDERS: ATTEND Internal Medicine
DX: Z12.2 Encounter for screening for malignant neoplasm of respiratory organs (principal); R91.1 Solitary pulmonary nodule; Z87.891 Personal history of nicotine dependence; R10.31 Right lower quadrant pain; R10.32 Left lower quadrant pain; Z95.2 Presence of prosthetic heart valve; Z95.820 Peripheral vascular angioplasty status with implants and grafts
CPT/HCPCS: 93978

== ENCOUNTER 2023-04-01 08:47 | Day surgery (SDC) | payer MEDICARE, OTHER ==
[2023-04-01] MEDS ORDERED: LACTATED RINGERS 1,000 ML IV ONE (09:24)
[2023-04-01] MEDS ORDERED: PROPARACAINE 0.5% OPHTH DROPS 15 ML RIGHTEYE ONE (09:33)
[2023-04-01] MEDS ORDERED: KETOROLAC 0.45% OPHTH DROPS RIGHTEYE ONE (09:33)
[2023-04-01] MEDS ORDERED: CYCLOPENTOLATE 1% OPHTH DROPS 2 ML RIGHTEYE ONE (09:34)
[2023-04-01] MEDS ORDERED: PHENYLEPHRINE 2.5% OPHTH 2 ML DROPS RIGHTEYE ONE (09:34)
--- NOTE | 2023-04-01 10:00 | ANESTHESIA ---
Pre-Anesthesia VS, & Labs - Diagnosis right cataract - Procedure cataract extraction with IOL Vital Signs: Temp Pulse Resp BP Pulse Ox O2 Flow Rate 36.4 C L 93 17 142/85 H 92 04/01/23 09:25 04/01/23 09:25 04/01/23 09:25 04/01/23 09:25 04/01/23 09:25 Height: 5 ft 1 in Weight (kg): 74.7 kg Body Mass Index: 31.1 BMI Classification: Obese - NPO >8 hours - Is Patient ?: No Home Medications and Allergies Home Medications: Ambulatory Orders Aspirin [Aspirin Regimen] 81 mg PO DAILY 03/31/23 Clopidogrel Bisulfate [Plavix] 75 mg PO DAILY 03/31/23 Multivitamin 1 each PO DAILY 03/31/23 Pantoprazole Sodium [Protonix] 40 mg PO BID 03/31/23 No122/Iron/Folic Acid [ Multi Tablet] 1 each PO DAILY 03/31/23 Rosuvastatin Calcium [Crestor] 20 mg PO DAILY 03/31/23 Tiotropium Louise [Spiriva] 1 puffs INH DAILY 03/31/23 Venlafaxine [Effexor] 37.5 mg PO DAILY 03/31/23 Aspirin [Aspirin Regimen] 81 mg PO DAILY 03/31/23 Clopidogrel Bisulfate [Plavix] 75 mg PO DAILY 03/31/23 Multivitamin 1 each PO DAILY 03/31/23 Pantoprazole Sodium [Protonix] 40 mg PO BID 03/31/23 No122/Iron/Folic Acid [ Multi Tablet] 1 each PO DAILY 03/31/23 Rosuvastatin Calcium [Crestor] 20 mg PO DAILY 03/31/23 Tiotropium Louise [Spiriva] 1 puffs INH DAILY 03/31/23 Venlafaxine [Effexor] 37.5 mg PO DAILY 03/31/23 Allergies/Adverse Reactions: Allergies Allergy/AdvReac Type Severity Reaction Status Date / Time No Known Drug Allergies Allergy Verified 04/01/23 09:30 Anes History & Medical History - Anesthetic History Anesthesia Complications: reports: No previous complications - Medical History Cardiovascular: reports: High cholesterol Pulmonary: reports: COPD Gastrointestinal: reports: GERD, Other Urinary: reports: Kidney stones Musculoskeletal: reports: Osteoarthritis Endocrine/Autoimmune: reports: None Skin: reports: None Smoking Status: Current every day smoker - Surgical History General: reports: Colonoscopy Cardiothoracic: reports: Valve replacement (Total endoscopic AVR) Gynecologic: reports: section, Hysterectomy, Oophrectomy Dermatologic: reports: Skin grafts Exam General: Alert, Oriented x3 Dental: WNL Mouth Openin Fingerbreadth Neck Mobility: Normal Mallampati classification: IV Thyromental Distance: 4-6 cm Respiratory: Lungs clear Cardiovascular: Regular rate, Normal S1, Normal S2 Plan Anesthesia Type: MAC Consent for Procedure(s) Verified and Reviewed: Yes Code Status: Attempt Resuscitation ASA classification: 3-Severe systemic disease Is this case an emergency?: No
[2023-04-01] MEDS ORDERED: MIDAZOLAM 2 MG/2 ML VIAL IVP ONE (10:12)
[2023-04-01] MEDS ORDERED: TIMOLOL 0.5% OPHTH DROPS OPTH ONE (10:13)
[2023-04-01] MEDS ORDERED: EPINEPHrine 1 MG/ML AMP IR ONE (10:13)
[2023-04-01] MEDS ORDERED: BRIMONIDINE 0.2% OPHTH DROPS 5 ML OPTH ONE (10:13)
[2023-04-01] MEDS ORDERED: BSS/LIDOCAINE/EPINEPHRINE 1 ML SYRINGE IO ONE (10:14)
[2023-04-01] MEDS ORDERED: VANCOMYCIN OPHTH (TOPICAL) 10 MG/ML SYRINGE TOP ONE (10:14)
[2023-04-01] MEDS ORDERED: PROPARACAINE 0.5% OPHTH DROPS 15 ML EACHEYE ONE (10:14)
[2023-04-01] MEDS ORDERED: TRIAMCIN/MOXIFLOX OPHTHALMIC 0.6 ML VIAL IO ONE (10:14)
[2023-04-01] MEDS ORDERED: LACTATED RINGERS 800 ML IV ONE (10:45)
--- NOTE | 2023-04-01 10:45 | OPERATIVE REPORT ---
Operative Report - Other Other Information/Narrative: Date of Surgery: 04/01/23 Preop Dx: Visually significant cataract right eye. This was the first cataract surgery. Postop Dx: Same Procedure: Phacoemulsification with posterior chamber intraocular lens implant right eye Surgeon: Dr. Vipul Laguerre Anesthesia: Monitored anesthesia care Complications: None Operative Indications: This is a 72-year-old F with progressive vision loss in the right eye due to 3-4+ nuclear sclerotic cataract. Best corrected visual acuity was 20/25 with glare to 20/630 vision in the right eye. Indications for surgery were: - Overall decrease in vision - Difficulty seeing words on a computer screen - Difficulty reading - Difficulty seeing words, closed captions, or game scores on TV - Difficulty seeing street signs - Difficulty driving in low light or at night - Difficulty driving at night because of headlights from other vehicles - Difficulty with glare or bright lights in any situation - Difficulty tracking a golf ball The patient was consented at length concerning the risks and benefits of cataract surgery after which the patient expressed a desire to proceed with surgery. Operative Procedure: The patient was taken into OR#3 and placed under monitored anesthesia care. A surgical time-out was conducted confirming correct patient, correct procedure, and correct surgical site. The patient was given topical anesthesia and then prepped and draped in the usual sterile fashion. The eye was entered at the 6 and 3 oclock positions. Intracameral Shugarcaine was injected into the anterior chamber followed by a dispersive viscoelastic. A continuous-tear curvilinear capsulorhexis was performed. The nucleus was hydrodissected and phacoemulsified. The cortex was evacuated using automated infusion and aspiration. A cohesive viscoelastic was injected into the capsular bag and a 21.5 diopter intraocular lens was inserted into the bag. Infusion and aspiration were used to evacuate the viscoelastic materials from the eye. The wounds were hydrated and the eye inflated to physiologic pressure using balanced salt solution. Approximately 0.25ml of a mixture of triamcinolone and moxifloxacin was injected trans-sclerally into the vitreous in the inferotemporal quadrant using a 30 gauge cannula. An additional 0.25ml of a mixture of triamcinolone and moxifloxacin was injected subconjunctivally in the superior quadrant for infection and inflammation prophylaxis. Wound integrity was checked with Weck-Chelsie sponges. The patient was taken from the operating room in good condition and given post-op instructions.
[2023-04-01 10:57] VITALS: BP 135/84; O2SAT 96
--- NOTE | 2023-04-01 13:01 | ANESTHESIA POST OP EVALUATION ---
Anesthesia Post Eval - Post Anesthesia Eval Vitals: Last Vital Signs Temp 36.2 C L 04/01/23 10:45 Pulse 85 04/01/23 10:45 Resp 14 04/01/23 10:45 BP 135/84 H 04/01/23 10:45 Pulse Ox 96 04/01/23 10:45 O2 Flow Rate CV Function Including HR & BP: Stable Pain Control: Satisfactory Nausea & Vomiting: Negative Mental Status: Baseline Respiratory Status: Airway Patent Hydration Status: Satisfactory Anesthesia Complications: None
== END 2023-04-01 08:48 | disposition home or self-care (01) ==
LOC: SDS 08:47
PROVIDERS: ATTEND Ophthalmology
DX: H25.11 Age-related nuclear cataract, right eye (principal); E66.9 Obesity, unspecified; Z68.31 Body mass index [BMI] 31.0-31.9, adult; J44.9 Chronic obstructive pulmonary disease, unspecified
CPT/HCPCS: 66984; A9270; J7120

== ENCOUNTER 2023-05-13 07:15 | Day surgery (SDC) | payer MEDICARE, OTHER ==
[~2023-05-13 07:15] MED LIST changes: +CYCLOPENTOLATE 1% OPHTH DROPS 2 ML ONE; +KETOROLAC 0.45% OPHTH DROPS ONE; +PHENYLEPHRINE 2.5% OPHTH 2 ML DROPS ONE; +PROPARACAINE 0.5% OPHTH DROPS 15 ML ONE; -lidocaine 1% 20 ML MDV ONE
[2023-05-13] MEDS ORDERED: PROPARACAINE 0.5% OPHTH DROPS 15 ML LEFTEYE ONE ×2 (07:30→08:50)
[2023-05-13] MEDS ORDERED: KETOROLAC 0.45% OPHTH DROPS LEFTEYE ONE (07:30)
[2023-05-13] MEDS ORDERED: CYCLOPENTOLATE 1% OPHTH DROPS 2 ML LEFTEYE ONE (07:30)
[2023-05-13] MEDS ORDERED: PHENYLEPHRINE 2.5% OPHTH 2 ML DROPS LEFTEYE ONE (07:30)
[2023-05-13] MEDS ORDERED: LACTATED RINGERS 1,000 ML IV ONE ×3 (07:44→08:59)
--- NOTE | 2023-05-13 07:58 | ANESTHESIA ---
Pre-Anesthesia VS, & Labs - Diagnosis LEFT EYE CATARACT - Procedure PE IOL OS Vital Signs: Temp Pulse Resp BP Pulse Ox O2 Flow Rate 36.9 C 97 16 151/98 H 94 05/13/23 07:34 05/13/23 07:34 05/13/23 07:34 05/13/23 07:34 05/13/23 07:34 Height: 5 ft 1 in Weight (kg): 74.7 kg Body Mass Index: 31.1 BMI Classification: Obese - NPO >8 hours - Is Patient ?: No Home Medications and Allergies Aspirin [Aspirin Regimen] 81 mg PO DAILY 03/31/23 Clopidogrel Bisulfate [Plavix] 75 mg PO DAILY 03/31/23 Multivitamin 1 each PO DAILY 03/31/23 Pantoprazole Sodium [Protonix] 40 mg PO BID 03/31/23 No122/Iron/Folic Acid [ Multi Tablet] 1 each PO DAILY 03/31/23 Rosuvastatin Calcium [Crestor] 20 mg PO DAILY 03/31/23 Tiotropium [place] [Spiriva] 1 puffs INH DAILY 03/31/23 Venlafaxine [Effexor] 37.5 mg PO DAILY 03/31/23 Allergies/Adverse Reactions: Allergies Allergy/AdvReac Type Severity Reaction Status Date / Time No Known Drug Allergies Allergy Verified 05/12/23 13:42 Anes History & Medical History - Anesthetic History Anesthesia Complications: reports: No previous complications Family history of Anesthesia Complications: Denies Family history of Malignant Hyperthermia: Denies - Medical History Cardiovascular: reports: High cholesterol, Other (TAVR, TAKES ASA/PLAVIX) Pulmonary: reports: COPD Gastrointestinal: reports: GERD, Other Urinary: reports: Kidney stones Musculoskeletal: reports: Osteoarthritis Endocrine/Autoimmune: reports: None Skin: reports: None Smoking Status: Current every day smoker - Surgical History General: reports: Colonoscopy Eyes Ears Nose Throat (EENT): reports: Cataracts (HAD VERSED LAST TIME, DID FINE) Cardiothoracic: reports: Valve replacement Gynecologic: reports: section, Hysterectomy, Oophrectomy Dermatologic: reports: Skin grafts Results - EKG Results EKG Comparison: Reviewed EKG Exam General: Alert Dental: WNL Mouth Openin Fingerbreadth Neck Mobility: Reduced Mallampati classification: IV Thyromental Distance: 4-6 cm Plan Anesthesia Type: MAC Consent for Procedure(s) Verified and Reviewed: Yes Code Status: Attempt Resuscitation ASA classification: 3-Severe systemic disease Is this case an emergency?: No
[2023-05-13] MEDS ORDERED: EPINEPHrine 1 MG/ML AMP ONE (08:17)
[2023-05-13] MEDS ORDERED: BSS/LIDOCAINE/EPINEPHRINE 1 ML VIAL ONE (08:18)
[2023-05-13] MEDS ORDERED: TIMOLOL 0.5% OPHTH DROPS ONE (08:18)
[2023-05-13] MEDS ORDERED: TRIAMCIN/MOXIFLOX OPHTHALMIC 0.6 ML VIAL IO ONE ×2 (08:18→08:50)
[2023-05-13] MEDS ORDERED: BRIMONIDINE 0.2% OPHTH DROPS 5 ML ONE (08:18)
[2023-05-13] MEDS ORDERED: MIDAZOLAM 2 MG/2 ML VIAL ONE (08:19)
[2023-05-13] MEDS ORDERED: EPINEPHrine 1 MG/ML AMP IR ONE (08:49)
[2023-05-13] MEDS ORDERED: BRIMONIDINE 0.2% OPHTH DROPS 5 ML OPTH ONE (08:49)
[2023-05-13] MEDS ORDERED: TIMOLOL 0.5% OPHTH DROPS OPTH ONE (08:49)
[2023-05-13] MEDS ORDERED: BSS/LIDOCAINE/EPINEPHRINE 1 ML SYRINGE IO ONE (08:50)
[2023-05-13] MEDS ORDERED: VANCOMYCIN OPHTH (TOPICAL) 10 MG/ML SYRINGE TOP ONE (08:50)
[2023-05-13] MEDS ORDERED: LIDOCAINE-PF 2% 10 ML AMP SUBQ ONE (08:52)
--- NOTE | 2023-05-13 09:19 | OPERATIVE REPORT ---
Operative Report - Other Other Information/Narrative: Date of Surgery: 05/13/23 Preop Dx: Visually significant cataract left eye. Cataract surgery was performed in the right eye on . Postop Dx: Same Procedure: Phacoemulsification with posterior chamber intraocular lens implant left eye Surgeon: Dr. Vipul Laguerre Anesthesia: Monitored anesthesia care Complications: None Operative Indications: This is a 72-year-old F with progressive vision loss in the left eye due to 3+ nuclear sclerotic cataract. Best corrected visual acuity was 20/25 with glare to 20/630 vision in the left eye. Indications for surgery were: - Overall decrease in vision - Difficulty seeing words on a computer screen - Difficulty reading - Difficulty seeing words, closed captions, or game scores on TV - Difficulty seeing street signs - Difficulty driving in low light or at night - Difficulty driving at night because of headlights from other vehicles - Difficulty with glare or bright lights in any situation The patient was consented at length concerning the risks and benefits of cataract surgery after which the patient expressed a desire to proceed with surg soto. Operative Procedure: The patient was taken into OR#3 and placed under monitored anesthesia care. A surgical time-out was conducted confirming correct patient, correct procedure, and correct surgical site. The patient was given topical anesthesia and then prepped and draped in the usual sterile fashion. The eye was entered at the 6 and 3 oclock positions. Intracameral Shugarcaine was injected into the anterior chamber followed by a dispersive viscoelastic. A continuous-tear curvilinear capsulorhexis was performed. The nucleus was hydrodissected and phacoemulsified. The cortex was evacuated using automated infusion and aspiration. A cohesive viscoelastic was injected into the capsular bag and a 21.5 diopter intraocular lens was inserted into the bag. Infusion and aspiration were used to evacuate the viscoelastic materials from the eye. The wounds were hydrated and the eye inflated to physiologic pressure using balanced salt solution. Approximately 0.25ml of a mixture of triamcinolone and moxifloxacin was injected trans-sclerally into the vitreous in the inferotemporal quadrant using a 30 gauge cannula. An additional 0.25ml of a mixture of triamcinolone and moxifloxacin was injected subconjunctivally in the superior quadrant for infection and inflammation prophylaxis. Wound integrity was checked with Weck-Chelsie sponges. The patient was taken from the operating room in good condition and given post-op instructions.
[2023-05-13 09:25] VITALS: BP 139/52; O2SAT 9
--- NOTE | 2023-05-13 09:33 | ANESTHESIA POST OP EVALUATION ---
Anesthesia Post Eval - Post Anesthesia Eval Vitals: Last Vital Signs Temp 36.4 C L 05/13/23 09:21 Pulse 90 05/13/23 09:21 Resp 18 05/13/23 09:21 BP 139/52 H 05/13/23 09:21 Pulse Ox 9 L 05/13/23 09:21 O2 Flow Rate CV Function Including HR & BP: Stable Pain Control: Satisfactory Nausea & Vomiting: Negative Mental Status: Baseline Respiratory Status: Airway Patent Hydration Status: Satisfactory Anesthesia Complications: None
== END 2023-05-13 07:16 | disposition home or self-care (01) ==
LOC: SDS 07:15
PROVIDERS: ATTEND Ophthalmology
DX: H25.12 Age-related nuclear cataract, left eye (principal); J44.9 Chronic obstructive pulmonary disease, unspecified; Z98.41 Cataract extraction status, right eye; E66.9 Obesity, unspecified; Z68.31 Body mass index [BMI] 31.0-31.9, adult; F17.200 Nicotine dependence, unspecified, uncomplicated
CPT/HCPCS: 66984; A9270; J3490; J7120

== ENCOUNTER 2023-07-19 09:29 | Outpatient (CLI) | payer MEDICARE, OTHER ==
[2023-07-19 09:52] LABS: CREATININE 0.7 mg/dL (0.6-1.3)
== END 2023-07-19 09:30 | disposition home or self-care (01) ==
LOC: LAB 09:29
PROVIDERS: ATTEND Internal Medicine
DX: I73.9 Peripheral vascular disease, unspecified (principal)
CPT/HCPCS: 36415; 82565

== ENCOUNTER 2023-07-29 10:36 | Outpatient (CLI) | payer MEDICARE, OTHER ==
[2023-07-29] MEDS ORDERED: iohexoL-300 150 ML BOTTLE ONE (11:02)
[2023-07-29] MEDS: iohexoL-300 150 ML BOTTLE IVP ONE (14:49)
--- NOTE | 2023-07-29 15:04 | CT Report ---
PROCEDURE: Angio Abdomen Runoff BL INDICATIONS: LT LEG CLAUDICATION CONTRAST: See chart TECHNIQUE: After the administration of intravenous contrast, a CT scan of the abdomen, pelvis and lower extremit ies (to the feet) was performed. Images were recorded and evaluated at appropriate window settings. R eformats: coronal and sagittal. For radiation dose reduction, the following was used: automated expos ure control, adjustment of mA and/or kV according to patient size. COMPARISON: None. FINDINGS: Image quality: Excellent. Abdominal aorta: No evidence of acute aortic syndrome. No significant aneurysm. No significant ather osclerotic disease. Right lower extremity: Common iliac artery: No significant atherosclerotic disease. External iliac artery: No significant atherosclerotic disease. Common femoral artery: No significant atherosclerotic disease. Superficial femoral artery: No significant atherosclerotic disease. Popliteal artery: No significant atherosclerotic disease. Anterior tibial artery: No significant atherosclerotic disease. Peroneal artery: No significant atherosclerotic disease. Posterior tibial artery: No significant atherosclerotic disease. Left lower extremity: Right lower extremity: Common iliac artery: No significant atherosclerotic disease. External iliac artery: Occluded at its origin in its entirety. Common femoral artery: Metallic stent. The entirety of the common femoral is occluded. Reconstitution at the femoral bifurcation. Superficial femoral artery: No significant atherosclerotic disease. Popliteal artery: No significant atherosclerotic disease. Anterior tibial artery: No significant atherosclerotic disease. Peroneal artery: No significant atherosclerotic disease. Posterior tibial artery: No significant atherosclerotic disease. OTHER: Lung bases and heart: 4 chamber cardiomegaly. Reflux of contrast into the proximal hepatic veins sugg ests a degree of right heart failure. Liver: No solid mass. Gallbladder and biliary tree: No radiopaque stones or wall thickening. No biliary dilation. Spleen: No splenomegaly. Pancreas: No pancreatic ductal dilation. Adrenals: No adrenal nodule. Kidneys and ureters: No hydronephrosis. No renal cystic lesion which requires follow up. No solid mas s. Bowel and peritoneum: No bowel distension. No pathologic free fluid. Moderate sigmoid diverticulosis. No evidence of acute diverticulitis. Lymph nodes: No central or retroperitoneal adenopathy. Vessels: No infrarenal aortic aneurysm. Reproductive organs: Uterus is surgically absent. Bladder: No abnormal wall thickening, accounting for underdistention. Pelvic lymph nodes: No pelvic adenopathy by size criteria. Bones: No aggressive osseous abnormality. Other: No significant ventral or inguinal hernia. IMPRESSION: 1. Patent aorta. 2. Unremarkable right lower extremity runoff. 3. Left lower extremity runoff is significant for occlusion of the entirety of the left external emely c and common femoral arteries. The common femoral artery has a pre-existing stent. There is reconstit ution at the left femoral bifurcation. There is patency below this point on the left with three-vesse l runoff. 4. Four-chamber cardiomegaly. Findings suggest that there is a degree of right heart failure. 5. Moderate sigmoid diverticulosis. 6. Remote hysterectomy. Reviewed by: Bartolome Armendariz MD on 07/29/2023 3:03 PM PDT Approved by: Bartolome Armendariz MD on 07/29/2023 3:03 PM PDT Station ID: [id number]
== END 2023-07-29 10:37 | disposition home or self-care (01) ==
LOC: DI 10:36
PROVIDERS: ATTEND Internal Medicine
DX: I74.5 Embolism and thrombosis of iliac artery (principal); I74.3 Embolism and thrombosis of arteries of the lower extremities; Z95.828 Presence of other vascular implants and grafts; I51.7 Cardiomegaly; K57.30 Diverticulosis of large intestine without perforation or abscess without bleeding; Z90.710 Acquired absence of both cervix and uterus
CPT/HCPCS: Q9967

== ENCOUNTER 2023-10-15 13:00 | Outpatient (CLI) | payer MEDICARE, OTHER ==
[2023-10-15 18:00] LABS: HCT - HEMATOCRIT 37.1 % (37.0-47.0); MEAN CORPUSCULAR HEMOGLOBIN 30.1 pg (27.0-31.0); MEAN CORPUSCULAR HGB CONC 29.6 g/dL (32.0-36.0); MEAN CORPUSCULAR VOLUME 101.4 fL (81.0-99.0); MEAN PLATELET VOLUME 9.9 fL (7.9-10.8); RED BLOOD COUNT 3.66 10^6/uL (4.20-5.40); RED CELL DISTRIBUTION WIDTH 15.5 % (12.0-15.0)
[2023-10-15 18:51] LABS: CALCIUM 9.5 mg/dL (8.5-10.3); CREATININE 0.7 mg/dL (0.6-1.3); POTASSIUM 3.5 mmol/L (3.5-4.5)
== END 2023-10-15 13:01 | disposition home or self-care (01) ==
LOC: LAB.N 13:00
PROVIDERS: ATTEND Family Medicine
DX: K92.1 Melena (principal)
CPT/HCPCS: 36415; 80048; 85027

== ENCOUNTER 2023-12-10 11:57 | Outpatient (CLI) | payer MEDICARE, OTHER ==
[2023-12-10 18:12] LABS: BASOPHILS # (AUTO) 0.1 10^3/uL (0.0-0.1); BASOPHILS % (AUTO) 0.6 %; EOSINOPHILS # (AUTO) 0.2 10^3/uL (0.0-0.7); EOSINOPHILS % (AUTO) 2.1 %; HCT - HEMATOCRIT 43.5 % (37.0-47.0); LYMPHOCYTES # (AUTO) 2.5 10^3/uL (1.5-3.5); LYMPHOCYTES % (AUTO) 32.3 %; MEAN CORPUSCULAR HEMOGLOBIN 29.1 pg (27.0-31.0); MEAN CORPUSCULAR HGB CONC 29.9 g/dL (32.0-36.0); MEAN CORPUSCULAR VOLUME 97.3 fL (81.0-99.0); MEAN PLATELET VOLUME 9.9 fL (7.9-10.8); MONOCYTES # (AUTO) 0.6 10^3/uL (0.0-1.0); MONOCYTES % (AUTO) 7.4 %; NEUTROPHILS # (AUTO) 4.5 10^3/uL (1.5-6.6); NEUTROPHILS % (AUTO) 57.5 %; PLT - PLATELET COUNT 299 10^3/uL (130-450); RED BLOOD COUNT 4.47 10^6/uL (4.20-5.40); RED CELL DISTRIBUTION WIDTH 14.9 % (12.0-15.0); WHITE BLOOD COUNT 7.8 x10^3/uL (4.8-10.8)
[2023-12-10 18:27] LABS: % IRON SATURATION 46 % (20-50); ALBUMIN 4.3 g/dL (3.2-5.5); ALBUMIN/GLOBULIN RATIO 1.7 (1.0-2.2); ALKALINE PHOSPHATASE 57 IU/L (42-121); ALT ALANINE AMINOTRANSFERASE 15 IU/L (10-60); AST ASPARTATE AMINOTRANSFERASE 22 IU/L (10-42); BILIRUBIN,TOTAL 0.5 mg/dL (0.2-1.0); BUN - BLOOD UREA NITROGEN 13 mg/dL (6-20); CALCIUM 10.1 mg/dL (8.5-10.3); CARBON DIOXIDE - CO2 33 mmol/L (21-32); CHLORIDE 102 mmol/L (101-111); CHOL/HDL RATIO 2.7 (<4.4); CHOLESTEROL 168 mg/dL; CREATININE 0.6 mg/dL (0.6-1.3); GFR - MDRD 98 (>89); GLUCOSE 120 mg/dL (74-104); HDL CHOLESTEROL 63 mg/dL; IRON 214 ug/dL (50-212); LDL CHOLESTEROL,CALCULATED 69 mg/dL; LDL/HDL RATIO 1.1 (<4.4); SODIUM 141 mmol/L (135-145); TOTAL IRON BINDING CAPACITY 468 ug/dL (250-450); TOTAL PROTEIN 6.9 g/dL (6.4-8.9); TRANSFERRIN 334 mg/dL (203-362); TRIGLYCERIDES 179 mg/dL; VLDL CHOLESTEROL 36 mg/dL
[2023-12-10 18:37] LABS: THYROID STIMULATING HORMONE 0.92 uIU/mL (0.34-5.60)
== END 2023-12-10 11:58 | disposition home or self-care (01) ==
LOC: LAB.N 11:57
PROVIDERS: ATTEND Internal Medicine
DX: I73.9 Peripheral vascular disease, unspecified (principal); E55.9 Vitamin D deficiency, unspecified; K92.1 Melena; E04.1 Nontoxic single thyroid nodule
CPT/HCPCS: 36415; 80053; 80061; 82306; 82728; 83540; 83721; 84443; 84466; 85025

== ENCOUNTER 2023-12-17 10:48 | Outpatient (CLI) | payer MEDICARE, OTHER ==
[2023-12-17 18:39] LABS: BASOPHILS % (AUTO) 0.4 %; EOSINOPHILS # (AUTO) 0.1 10^3/uL (0.0-0.7); EOSINOPHILS % (AUTO) 1.3 %; HCT - HEMATOCRIT 38.3 % (37.0-47.0); HGB - HEMOGLOBIN 11.3 g/dL (12.0-16.0); LYMPHOCYTES # (AUTO) 2.4 10^3/uL (1.5-3.5); LYMPHOCYTES % (AUTO) 30.6 %; MEAN CORPUSCULAR HEMOGLOBIN 29.1 pg (27.0-31.0); MEAN CORPUSCULAR HGB CONC 29.5 g/dL (32.0-36.0); MEAN CORPUSCULAR VOLUME 98.7 fL (81.0-99.0); MEAN PLATELET VOLUME 10.3 fL (7.9-10.8); MONOCYTES # (AUTO) 0.6 10^3/uL (0.0-1.0); MONOCYTES % (AUTO) 7.6 %; NEUTROPHILS # (AUTO) 4.7 10^3/uL (1.5-6.6); PLT - PLATELET COUNT 220 10^3/uL (130-450); RED BLOOD COUNT 3.88 10^6/uL (4.20-5.40); RED CELL DISTRIBUTION WIDTH 15.1 % (12.0-15.0); WHITE BLOOD COUNT 7.8 x10^3/uL (4.8-10.8)
[2023-12-17 18:57] LABS: CALCIUM 9.6 mg/dL (8.5-10.3); CREATININE 0.6 mg/dL (0.6-1.3); POTASSIUM 4.2 mmol/L (3.5-4.5)
== END 2023-12-17 10:49 | disposition home or self-care (01) ==
LOC: LAB.N 10:48
PROVIDERS: ATTEND Internal Medicine
DX: D64.9 Anemia, unspecified (principal)
CPT/HCPCS: 36415; 80048; 85025

== ENCOUNTER 2023-12-23 15:09 | Outpatient (CLI) | payer MEDICARE, OTHER ==
--- NOTE | 2023-12-23 15:41 | Sleep Patient Instructions ---
Sleep Center Visit Summary - Patient Visit Information Reason for Visit: Initial consult for evaluation of sleep disordered breathing and other sleep issues. - Patient Instructions Instructions Attached: Sleep Study Additional Instructions: You will be completing a sleep study, either an in-lab polysomnography (PSG) or home sleep study (HST). You will follow-up in the sleep care office after the sleep study is completed to hear the results and talk about therapy, if needed. You will be called by our office staff to schedule this appointment, but you may contact us with any questions. - Clinic Information Contact: [facility] [address] [place] [address] [email or web address] T: [phone]
--- NOTE | 2023-12-23 15:45 | SLEEP CARE CONSULTATION ---
Information from patient questionnaire entered by Giancarlo Saavedra. I have reviewed and concur with the information entered by Giancarlo Saavedra. This document represents the service I personally performed and the decisions made by me, Nikole Nix ARNP. History of Present Illness Service Date and Time: 12/23/2023 1509 Reason for Visit: New patient Chief Complaint: reports: Excessive daytime sleepiness, Fatigue, Frequent awakenings at night Date of Onset: OVER A YR Usual bedtime: 2200 Time it takes to fall asleep: 30MINS Snores at night: Yes Observed to quit breathing while asleep: No Sleeps alone due to snoring: No Number of times waking at night: 3+ Reasons for waking at night: reports: Bathroom. denies: Choking, Snoring, Gasping for air Toss, Turn, or Twitch while sleeping: Yes Recalls having dreams: Yes Usually gets out of bed at: 7382-0328 Feels refreshed in the morning: No Morning headache: No Sleepy or fatigued during the day: Yes Ever fallen asleep while driving: No Takes day naps: Yes (not often) Dreams during day naps: No Prior sleep studies: No Additional HPI information: I had the pleasure of seeing CAITLIN AYALA today regarding the possibility of her having a sleep disorder. Her current complaints are excessive daytime sleepiness, fatigue and frequent night awakenings. She says she does not sleep very well and hasn't for a long time. She tosses and turns. Her says she snores. She does not wake up feeling refreshed. She feels that she wakes up frequently for unknown reasons or the bathroom. She says she rarely naps. She is on oxygen 2 Liters per nasal cannula 23/11 since September 2023. She has had issues with bleeding that they are still evaluating. 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 Patient is and lives in [place]. Have you smoked in the past 12 months: No Cigarettes per day (20/pack): 20 Years of smokin Quit date: 10/2022 Smoking Pack Years: 50.0 Alcohol use: Yes Alcohol amount and frequency: RARELY Caffeine use: No Family History Family history of sleep disordered breathing: Yes Family Hx Sleep Apnea: Other: Snoring (son), Sleep apnea - Treated Allergies and Home Medications Known drug allergies: Yes (as listed) Drug allergies reviewed: Yes Home medication list reviewed: Yes (as listed) Allergy and home medication list: Allergies No Known Drug Allergies Allergy (Verified 12/23/23 15:02) Home Medications Medication Instructions Recorded Confirmed Last Taken Type Aspirin [Aspirin Regimen] 81 mg PO DAILY 03/31/23 12/23/23 05/11/23 History Clopidogrel Bisulfate [Plavix] 75 mg PO DAILY 03/31/23 12/23/23 05/12/23 History Multivitamin 1 each PO DAILY 03/31/23 12/23/23 05/12/23 History Pantoprazole Sodium [Protonix] 40 mg PO BID 03/31/23 12/23/23 05/12/23 History No122/Iron/Folic Acid 1 each PO DAILY 03/31/23 12/23/23 05/12/23 History [ Multi Tablet] Rosuvastatin Calcium [Crestor] 20 mg PO DAILY 03/31/23 12/23/23 05/11/23 History Tiotropium [place] [Spiriva] 1 puffs INH DAILY 03/31/23 12/23/23 05/11/23 History Venlafaxine [Effexor] 37.5 mg PO DAILY 03/31/23 12/23/23 05/12/23 History Trilogy See Rx Instructions .ROUTE .COMPLEX 12/23/23 12/23/23 Unknown History Review of Systems Weight gain over past 5 years: 35 Cardiovascular: reports: palpitations. denies: high blood pressure Respiratory: reports: shortness of breath, chronic cough Urinary: reports: frequency Neurological: denies: headaches Psychiatric: denies: anxiety, depression Ear/Nose/Throat: denies: tonsillectomy Physical Exam Vital signs obtained and entered by: GIANCARLO Huang MA Blood Pressure: 118/73 (RIGHT ARM) Cuff size: regular Heart Rate: 108 O2 Saturation: 87 Height: 5 ft 1 in Weight: 166 lb Body Mass Index: 31.4 BMI Classification: Obese Neck circumference: 17 Mouth and throat: narrow oropharynx Soft palate: long Hard palate: normal Uvula: normal Uvula visualization: 25% Mallampati Class III Tongue: enlarged in size with teeth tai on lateral edges Tonsils: 1+ Neck: normal w/o lymphadenopathy or thyromegaly Heart: regular rate and rhythm Lungs: clear bilaterally Impression and Plan 1. Suspected Obstructive Sleep Apnea-Hypopnea Syndrome, as suggested by a history of loud and irregular snoring, frequent awakening during the night, unrefreshed sleep, and excessive daytime sleepiness. She is currently on 2 L/nasal cannula for hypoxemia. Narrow oropharynx and obesity are common predisposing factors for obstructive sleep apnea-hypopnea syndrome. I recommend proceeding to polysomnography to confirm the diagnosis and to assess severity. If the patient has significant sleep disordered breathing, a manual CPAP titra tion study will also be performed to find the optimal treatment pressure. I informed the patient of what the sleep studies involve and after some discussion, obtained agreement to proceed. The pathophysiology of obstructive sleep apnea-hypopnea syndrome was discussed with the patient and health risks of cardiovascular and cerebrovascular disease if not treated. Risks of drowsy driving discussed in detail and patient advised to avoid long distance driving and to door puller at the first sign of drowsiness. Patient agreed to plan. * Schedule polysomnography +- manual CPAP titration study and return in 1-2 weeks after the study to discuss result and initiate therapy. * Avoid long distance driving or driving when feeling sleepy. * Attempt to lose weight. * Review instructions provided by trained office staff on how to prepare for the sleep study. * Return for follow-up after sleep study completed. Counseling Topics: Weight loss health impact Plan: PSG and follow up Visit Type: In Office Time Spent with Patient (minutes): 33 Provider Statement: I spent 100% of the Face to Face Visit with the patient with greater than 50% spent counseling the patient and coordination of care.
[2023-12-23 15:47] VITALS: BP 118/73; O2SAT 87
== END 2023-12-23 15:10 | disposition home or self-care (01) ==
LOC: SC 15:09
PROVIDERS: ATTEND Nurse Practitioner Family
DX: G47.10 Hypersomnia, unspecified (principal); R53.83 Other fatigue; G47.8 Other sleep disorders; R06.83 Snoring; Z87.891 Personal history of nicotine dependence; E66.9 Obesity, unspecified; Z68.31 Body mass index [BMI] 31.0-31.9, adult
CPT/HCPCS: 99203; G0463; 99212

== ENCOUNTER 2023-12-25 08:00 | Outpatient (CLI) | payer MEDICARE, OTHER | END 2023-12-25 23:59 | disposition home or self-care (01) | LOC: LAB.N 08:00 | PROVIDERS: ATTEND Family Medicine | DX: R53.83 Other fatigue (principal); R06.02 Shortness of breath ==

== ENCOUNTER 2023-12-25 16:35 | Outpatient (CLI) | payer MEDICARE, OTHER | END 2023-12-25 16:36 | disposition critical access hospital (66) | LOC: EMS 16:35 | DX: R19.5 Other fecal abnormalities (principal); R53.1 Weakness; R42 Dizziness and giddiness | CPT/HCPCS: A0425; A0429 ==

== ENCOUNTER 2023-12-25 17:03 | Emergency (ER) | payer MEDICARE, OTHER ==
--- NOTE | 2023-12-25 17:20 | ED Physician Documentation ---
History of Present Illness - Stated complaint Stated Complaint: GIB - Chief complaint Chief Complaint: General - Additonal information Additional information: 73-year-old female with history of high cholesterol, COPD, GI bleed, kidney stones, anemia, osteoarthritis presents emergency department for concerns of recurrent GI bleed. Patient says that she was hospitalized at [facility] in and she had a procedure done to stop the bleeding she noticed about 2 weeks ago she started having black tarry bowel movements again and is now feeling dizzy and nauseous. Patient was recently here for low hemoglobin and did require 1 unit of RBCs. She denies any hematemesis, no fevers or chills no shortness of breath. 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, Hysterectomy, Oophrectomy Cardiovascular: Valve replacement HEENT: Cataracts Derm: Skin grafts - Present Medications Home Medications: Ambulatory Orders Medication Instructions Recorded Confirmed Aspirin [Aspirin Regimen] 81 mg PO DAILY 03/31/23 12/23/23 Multivitamin 1 each PO DAILY 03/31/23 12/25/23 Pantoprazole Sodium [Protonix] 40 mg PO BID 03/31/23 12/25/23 No122/Iron/Folic Acid 1 each PO DAILY 03/31/23 12/25/23 [ Multi Tablet] Rosuvastatin Calcium [Crestor] 20 mg PO DAILY 03/31/23 12/25/23 Tiotropium [place] [Spiriva] 1 puffs INH DAILY 03/31/23 12/25/23 Trilogy See Rx Instructions .ROUTE .COMPLEX 12/23/23 12/25/23 Famotidine [Acid Projection Camera Operator] 1 tab PO DAILY 12/25/23 12/25/23 Rivaroxaban [Xarelto] 1 tab PO DAILY 12/25/23 12/25/23 - Allergies Allergies/Adverse Reactions: Allergies Allergy/AdvReac Type Severity Reaction Status Date / Time aspirin Allergy Verified 12/23/23 15:07 - Social History Does the pt smoke?: Yes Smoking Status: Current every day smoker Does the pt drink ETOH?: No Does the pt have substance abuse?: No - Immunizations Immunizations are current?: Yes PD ED PE NORMAL - Vitals Vital signs reviewed: Yes - General General: Alert and oriented X 3, No acute distress, Well developed/nourished - HEENT HEENT: Atraumatic, PERRL - Cardiac Cardiac: RRR, No murmur - Respiratory Respiratory: No respiratory distress, Clear bilaterally - Abdomen Abdomen: Normal bowel sounds, Soft, Non tender, Non distended, No organomegaly - Back Back: No CVA TTP - Derm Derm: No rash, Other (pale) - Extremities Extremities: No edema Results - Vitals Vitals: Vital Signs - 24 hr 12/25/23 12/25/23 12/25/23 17:07 19:11 19:34 Temperature 36.6 C 36.2 C L 36.4 C L Heart Rate 96 90 Heart Rate [ 96 Monitoring electrodes] Respiratory 16 16 16 Rate Blood Pressure 121/72 148/70 H Blood Pressure 140/79 H [Left Brachial artery] O2 Saturation 97 100 100 If not protocol 2 2 : Oxygen Flow, liters/minute 12/25/23 12/25/23 12/25/23 19:51 21:00 21:56 Temperature 36.3 C L 36 C L 36.4 C L Heart Rate 85 Heart Rate [ 92 84 Monitoring electrodes] Respiratory 17 15 18 Rate Blood Pressure 125/65 Blood Pressure 119/62 124/78 [Left Brachial artery] O2 Saturation 100 100 100 If not protocol 2 2 : Oxygen Flow, liters/minute Oxygen O2 Source Room air - Labs Labs: Laboratory Tests 12/25/23 12/25/23 12/25/23 17:14 17:14 17:14 WBC 7.8 RBC 2.27 L Hgb 6.5 L* Hct 22.4 L MCV 98.7 MCH 28.6 MCHC 29.0 L RDW 15.6 H Plt Count 270 MPV 9.3 Neut # (Auto) 5.1 Lymph # (Auto) 1.9 Ida # (Auto) 0.8 Eos # (Auto) 0.1 Baso # (Auto) 0.0 Absolute Nucleated RBC 0.04 Nucleated RBC % 0.5 APTT 26.1 Sodium 139 Potassium 4.1 Chloride 104 Carbon Dioxide 29 Anion Gap 6.0 BUN 18 Creatinine 0.6 Estimated GFR (MDRD) 98 Glucose 109 H Calcium 9.1 Magnesium 1.7 Total Bilirubin 0.5 AST 20 ALT 11 Alkaline Phosphatase 47 Total Protein 6.5 Albumin 3.8 Globulin 2.7 Albumin/Globulin Ratio 1.4 Lipase 50 Urine Color Urine Clarity Urine pH Ur Specific [place] Urine Protein Urine Glucose (UA) Urine Ketones Urine Occult Blood Urine Nitrite Urine Bilirubin Urine Urobilinogen Ur Leukocyte Esterase Ur Microscopic Review Urine Culture Comments Blood Type Blood Type Recheck Antibody Screen Crossmatch IS Only 12/25/23 12/25/23 12/25/23 17:14 17:22 19:10 WBC RBC Hgb Hct MCV MCH MCHC RDW Plt Count MPV Neut # (Auto) Lymph # (Auto) Ida # (Auto) Eos # (Auto) Baso # (Auto) Absolute Nucleated RBC Nucleated RBC % APTT Sodium Potassium Chloride Carbon Dioxide Anion Gap BUN Creatinine Estimated GFR (MDRD) Glucose Calcium Magnesium Total Bilirubin AST ALT Alkaline Phosphatase Total Protein Albumin Globulin Albumin/Globulin Ratio Lipase Urine Color YELLOW Urine Clarity CLEAR Urine pH 6.5 Ur Specific [place] <=1.005 Urine Protein NEGATIVE Urine Glucose (UA) NEGATIVE Urine Ketones NEGATIVE Urine Occult Blood NEGATIVE Urine Nitrite NEGATIVE Urine Bilirubin NEGATIVE Urine Urobilinogen 0.2 (NORMAL) Ur Leukocyte Esterase NEGATIVE Ur Microscopic Review NOT INDICATED Urine Culture Comments NOT INDICATED Blood Type A POSITIVE Blood Type Recheck A POSITIVE Antibody Screen NEGATIVE Crossmatch IS Only See Detail - Rads (name of study) CT with contrast abdomen pelvis Relevant Findings:: Final report received, EMP independent interpretation of test, Other (No source or cause of GI bleeding can be seen, diverticulosis without diverticulitis) PD Medical Decision Making - ED course ED course: 73-year-old female presents emerged department for nausea fatigue and dizziness with dark black bowel movements. Patient had hemoglobin draw on 12/17/2023 and it was found to be 11.3 she started noticing dark black bowel movements 2 weeks ago hemoglobin today is found to be 6.5. Her vital signs are stable she is hemodynamically stable. 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 I reach out to our surgeon and started 1 unit of RBCs here in the emergency department as well as gave 80 mg of Protonix and our surgeon Dr. Pepe does not feel comfortable keeping this patient here. I reached out to [facility] on-call GI who agrees that patient should be transferred back to [facility] we will repeat an H&H if it is greater than 7 then they will be willing to accept her back at [facility]. Report given to Dr. Garcia who is further managing the patient care due to change of shift and will give report to [facility] hospitalist as soon as they return a phone call. Departure - Departure Disposition: 02 Transfer Acute Care Hosp Clinical Impression: GI bleed, Anemia Forms: PCP List
[2023-12-25 17:21] LABS: BASOPHILS % (AUTO) 0.1 %; EOSINOPHILS # (AUTO) 0.1 10^3/uL (0.0-0.7); HCT - HEMATOCRIT 22.4 % (37.0-47.0); LYMPHOCYTES # (AUTO) 1.9 10^3/uL (1.5-3.5); MEAN CORPUSCULAR HEMOGLOBIN 28.6 pg (27.0-31.0); MEAN CORPUSCULAR VOLUME 98.7 fL (81.0-99.0); MEAN PLATELET VOLUME 9.3 fL (7.9-10.8); MONOCYTES # (AUTO) 0.8 10^3/uL (0.0-1.0); MONOCYTES % (AUTO) 9.8 %; NEUTROPHILS # (AUTO) 5.1 10^3/uL (1.5-6.6); NRBC ABSOLUTE COUNT (AUTO) 0.04 x10^3/uL; NUCLEATED RED BLOOD CELLS AUTO 0.5 /100WBC; PLT - PLATELET COUNT 270 10^3/uL (130-450); RED BLOOD COUNT 2.27 10^6/uL (4.20-5.40); RED CELL DISTRIBUTION WIDTH 15.6 % (12.0-15.0); WHITE BLOOD COUNT 7.8 x10^3/uL (4.8-10.8)
[2023-12-25 17:26] LABS: HGB - HEMOGLOBIN 6.5 g/dL (12.0-16.0)
[2023-12-25 17:42] LABS: ALBUMIN 3.8 g/dL (3.2-5.5); ALBUMIN/GLOBULIN RATIO 1.4 (1.0-2.2); BILIRUBIN,TOTAL 0.5 mg/dL (0.2-1.0); CALCIUM 9.1 mg/dL (8.5-10.3); CREATININE 0.6 mg/dL (0.6-1.3); MAGNESIUM 1.7 mg/dL (1.7-2.3); POTASSIUM 4.1 mmol/L (3.5-4.5); TOTAL PROTEIN 6.5 g/dL (6.4-8.9)
[2023-12-25] MEDS ORDERED: iohexoL-300 100 ML VIAL ONE (17:55)
[2023-12-25] MEDS: iohexoL-300 100 ML VIAL IVP ONE (18:44)
--- NOTE | 2023-12-25 18:53 | CT Report ---
PROCEDURE: Angio Abdomen/Pelvis INDICATIONS: GIB CONTRAST: 100 TECHNIQUE: After the administration of intravenous contrast, 2.5 mm thick sections acquired from the diaphragm t o the symphysis. 10 mm maximum-intensity projection (MIP) reformats were then acquired. For radiati on dose reduction, the following was used: automated exposure control, adjustment of mA and/or kV ac cording to patient size. COMPARISON: 07/29/2023, 06/15/2017 FINDINGS: Image quality: Excellent. Aorta: Atherosclerotic calcification is seen. No aneurysm or stenosis can be seen. Mesenteric arteries: Celiac trunk, superior and inferior mesenteric arteries appear patent. Right pelvic arteries: Within normal limits for age, with note made of atherosclerotic calcification . Left pelvic arteries: Extensive left common iliac and external iliac artery stents can be seen, whic h appear patent. Atherosclerotic calcification can be seen. Extravascular soft tissues: Lung bases are clear. Heart size is normal. A percutaneously placed ao rtic valve prosthesis can be seen. Liver and spleen are normal in size and enhancement. Gallbladder demonstrates no significant abnormality.. Biliary system is non dilated. Pancreas enhances normall y. No adrenal nodules. Kidneys are normal in size and enhancement, without hydronephrosis. Non opacified bowel loops are normal in wall thickness and caliber. No findings of active extravasat ion can be seen on the arterial images. Rial images. Hemorrhage can be seen on the delayed images. Di verticulosis can be seen, without rossi findings of active diverticulitis. No free fluid or air. This patient is status post hysterectomy. No adnexal masses can be seen. No retroperitoneal or mesenteric adenopathy. No ventral hernias. No suspicious bony lesions. No ve rtebral body compression fractures. Left groin postoperative clips are seen. IMPRESSION: No source or cause of GI bleeding can be seen. Diverticulosis can be seen, without rossi findings of active diverticulitis. Patent left iliac system stents are seen. Additional findings: Prosthetic aortic valve Hysterectomy Left groin postoperative clips Reviewed by: Pavel Marks MD on 12/25/2023 5:51 PM CAROL Approved by: Pavel Marks MD on 12/25/2023 5:51 PM CAROL Station ID: [id number]
[2023-12-25 19:43] LABS: BILIRUBIN,URINE NEGATIVE (NEGATIVE); GLUCOSE, URINE (UA) NEGATIVE (NEGATIVE); KETONES,URINE (UA) NEGATIVE (NEGATIVE); LEUKOCYTE ESTERASE, URINE NEGATIVE (NEGATIVE); NITRITE,URINE NEGATIVE (NEGATIVE); OCCULT BLOOD,URINE NEGATIVE (NEGATIVE); PH,URINE 6.5 PH (5.0-7.5); PROTEIN,URINE NEGATIVE (NEGATIVE); UROBILINOGEN,URINE 0.2 (NORMAL) E.U./dL (NORMAL)
[2023-12-25 19:44] LABS: CLARITY,URINE CLEAR (CLEAR)
[2023-12-25] MEDS: PANTOPRAZOLE 40 MG VIAL IVP STA (21:12)
[2023-12-25 22:33] LABS: HCT - HEMATOCRIT 27.2 % (37.0-47.0); HGB - HEMOGLOBIN 8.2 g/dL (12.0-16.0)
[2023-12-25 22:40] LABS: INR 1.4 (0.8-1.2); PT - PROTHROMBIN TIME 14.8 secs (9.9-12.6)
--- NOTE | 2023-12-25 23:30 | ED Physician Documentation ---
ED Addendum - Addendum Addendum: 12/25/23 23:15 Patient received in signout from off going physician, please see their documentation for further detail. Patient signed out to me pending consultation with [facility]. The patient established with the gastroenterology team at [facility] and underwent EGD for an actively bleeding deadlifts Reinier lesion 10/28. Recommendation per [facility] gastroenterology was patient to be transferred to that facility. Initially informed from ongoing physician that there was a bed available though the facility requested a recheck of the patient's H&H prior to consult with the hospitalist service. Hemoglobin and hematocrit has returned to 8.2. Now informed by the patient's transfer center that there is no longer a bed available at [facility] and patient needs to be transferred to a different facility. 12/26/23 06:26 Patient waitlisted at multiple facilities. Repeat hemoglobin in the morning remained stable at 8.2. Continuing to wait for bed availability either at [facility] or at a facility with appropriate gastroenterology service.
[2023-12-26] MEDS: SODIUM CHLORIDE 0.9% 1,000 ML IV STA ×2 (04:39→11:44)
[2023-12-26 06:15] LABS: BASOPHILS % (AUTO) 0.3 %; EOSINOPHILS # (AUTO) 0.1 10^3/uL (0.0-0.7); EOSINOPHILS % (AUTO) 1.6 %; HCT - HEMATOCRIT 27.4 % (37.0-47.0); HGB - HEMOGLOBIN 8.2 g/dL (12.0-16.0); LYMPHOCYTES % (AUTO) 28.8 %; MEAN CORPUSCULAR HGB CONC 29.9 g/dL (32.0-36.0); MEAN CORPUSCULAR VOLUME 93.5 fL (81.0-99.0); MEAN PLATELET VOLUME 8.5 fL (7.9-10.8); MONOCYTES # (AUTO) 0.6 10^3/uL (0.0-1.0); NEUTROPHILS # (AUTO) 4.2 10^3/uL (1.5-6.6); PLT - PLATELET COUNT 222 10^3/uL (130-450); RED BLOOD COUNT 2.93 10^6/uL (4.20-5.40); RED CELL DISTRIBUTION WIDTH 17.8 % (12.0-15.0); WHITE BLOOD COUNT 6.9 x10^3/uL (4.8-10.8)
[2023-12-26 06:32] LABS: ALBUMIN 3.7 g/dL (3.2-5.5); ALBUMIN/GLOBULIN RATIO 1.4 (1.0-2.2); BILIRUBIN,TOTAL 0.8 mg/dL (0.2-1.0); CALCIUM 9.1 mg/dL (8.5-10.3); CREATININE 0.6 mg/dL (0.6-1.3); POTASSIUM 3.4 mmol/L (3.5-4.5); TOTAL PROTEIN 6.3 g/dL (6.4-8.9)
[2023-12-26 12:16] LABS: BASOPHILS % (AUTO) 0.4 %; EOSINOPHILS # (AUTO) 0.1 10^3/uL (0.0-0.7); EOSINOPHILS % (AUTO) 1.4 %; HCT - HEMATOCRIT 27.7 % (37.0-47.0); HGB - HEMOGLOBIN 8.2 g/dL (12.0-16.0); LYMPHOCYTES % (AUTO) 26.8 %; MEAN CORPUSCULAR HGB CONC 29.6 g/dL (32.0-36.0); MEAN CORPUSCULAR VOLUME 94.5 fL (81.0-99.0); MEAN PLATELET VOLUME 9.1 fL (7.9-10.8); MONOCYTES # (AUTO) 0.6 10^3/uL (0.0-1.0); MONOCYTES % (AUTO) 8.8 %; NEUTROPHILS # (AUTO) 4.5 10^3/uL (1.5-6.6); NEUTROPHILS % (AUTO) 62.3 %; PLT - PLATELET COUNT 239 10^3/uL (130-450); RED BLOOD COUNT 2.93 10^6/uL (4.20-5.40); RED CELL DISTRIBUTION WIDTH 17.6 % (12.0-15.0); WHITE BLOOD COUNT 7.3 x10^3/uL (4.8-10.8)
--- NOTE | 2023-12-26 14:21 | ED Physician Documentation ---
ED Addendum - Addendum Addendum: 12/26/23 14:19 Patient continues to board in the emergency department looking for placement. I spoke with the GI doctor at [facility], he asks if our surgeon is comfortable scoping the patient here to see if she is still bleeding as her hemoglobin has been stable. I spoke with our general surgeon, Dr. Pepe, he came and evaluated the patient as well as reviewed the chart from [facility]. He states that our endoscopy equipment here would not be able to treat this lesion. He states that she may very well need embolization by interventional radiology which we do not have here either. He recommends that we continue to pursue transfer for this patient. No beds available in the region but she is on several wait lists.
--- NOTE | 2023-12-26 14:57 | MISCELLANEOUS PROVIDER NOTE ---
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 Although this is described as the first line of therapy for treatment of this lesion it has now failed treatment and as such interventional radiology should be considered (as its success rate is approximately 90%). This is particularly true in this patient who is on a DOAC. We do not have the equipment that would allow me to reach the 4th portion of the duodenum and we do not have interventional radiology. As a critical access hospital our access to blood products is also very limited. I explained to the patient and her that she would be much better served in a hospital that had the personnel, equipment and resources to address this complex issue. They vocalized an understanding and thanked me for coming in to talk with them.
--- NOTE | 2023-12-26 16:00 | PHARMACY PROGRESS NOTE ---
- Best Possible Medication History Admit Date and Time: Processed by: Pharmacy Medication History completed: No Patient Interview: Completed Secondary Source(s): Written medication list, Spouse/Significant other, Insurance records (PER [employer] RECORDS, INTERVIEW WITH PT AND SPOUSE, AND MED LIST PROVIDED TO ED PREVIOUSLY) As the person ultimately responsible for medication therapy, providers are able to order a medication from an existing home medication list in [facility] via the "Reconcile Routine" prior to Confirmation of that medication by end user support specialist. Such practice is discouraged except when the physician, in their clinical judgm ent, deems that a medical need exists for a medication without regard to previous use.
--- NOTE | 2023-12-26 18:13 | ED Physician Documentation ---
ED Addendum - Addendum Addendum: Spoke with [facility] hospitalist Dr. Jaylene Arredondo gave report about the patient will we will done for her and he has graciously agreed to admit the patient for further workup for her GI bleed. Her hemoglobin remained stable at 8.2 for 3 total blood draws and she remains hemodynamically stable. Patient is willing and agreeable to go to [facility] for further workup for her GI bleed. Doctor skyla has graciously also agreed to round the patient here and continues to believe that he does not feel comfortable treating this patient here to see his note for further details and evaluation. Patient is agreeable for transfer she will go via BLS. 12/26/23 18:10
[2023-12-26 19:45] VITALS: BP 125/55; O2SAT 98
== END 2023-12-26 20:49 | disposition short-term general hospital (02) ==
LOC: ED 17:03
DX: K92.2 Gastrointestinal hemorrhage, unspecified (principal); D64.9 Anemia, unspecified; F17.200 Nicotine dependence, unspecified, uncomplicated; R53.83 Other fatigue; R06.02 Shortness of breath
CPT/HCPCS: 36415; 36430; 74174; 80053; 81003; 83690; 83735; 85014; 85018; 85025; 85610; 85730; 86850; 86900; 86901; 86920; 87637; 96361; 96374; 99285; P9016; 81001; 87086